=== PATIENT | male | born 1945 | race Caucasian/White ===

== ENCOUNTER 2017-07-15 07:29 | Inpatient (IN) ==
--- NOTE | 2017-07-15 07:47 | Emergency Department Note ---
Disposition Clinical Impression: Neurological symptoms, Visual field defect, Community acquired pneumonia, Elevated troponin level Disposition: Admitted As Inpatient Condition: Fair General Adult HPI - General Stated complaint: Neuro symptoms Time Seen by Provider: 07/15/17 07:33 Source: patient Limitations: no limitations - History of Present Illness Pain Scale: 1 - Related Data Home Medications Medication Instructions Recorded Confirmed Aspirin [Adult Low Dose Aspirin EC] 81 mg PO DAILY 11/20/14 07/15/17 Atorvastatin [Lipitor] 40 mg PO HS 11/20/14 07/15/17 Losartan/Hydrochlorothiazide 1 tab PO DAILY 11/20/14 07/15/17 [Hyzaar 100-25 Tablet] HYDROcodone/Acet 5/325 mg [[place] 1 tab PO BID PRN 07/15/17 07/15/17 5-325 mg] Allergies Allergy/AdvReac Type Severity Reaction Status Date / Time No Known Allergies Allergy Verified 07/15/17 09:11 Past Medical History - Past Medical History Medical history: Reports: arthritis, hyperlipidemia, hypertension Surgical history: Reports: cholecystectomy Psychiatric history: Reports: no psych history - Social History Smoking Status: Former smoker Smokeless Tobacco Status: No Alcohol use: Reports: none Drug use: Reports: none Physical Exam - General Limitations: no limitations General appearance: alert, in no apparent distress Course Vital Signs Temperature 99.1 F 07/15/17 07:37 Pulse Rate 84 07/15/17 07:37 Respiratory Rate 15 07/15/17 07:37 Blood Pressure 113/88 07/15/17 07:37 O2 Sat by Pulse Oximetry 91 07/15/17 07:37 Temperature 99.4 F 07/15/17 15:00 Pulse Rate 87 07/15/17 15:00 Respiratory Rate 15 07/15/17 15:00 Blood Pressure 133/57 07/15/17 15:00 O2 Sat by Pulse Oximetry 92 07/15/17 15:00 Oxygen Delivery Oxygen Delivery Nasal Cannula Medical Decision Making - Lab Data Result diagrams: 07/15/17 08:03 07/15/17 08:03 Lab Results 07/15/17 07/15/17 07/15/17 Range/Units 07:36 08:03 08:03 WBC 10.8 (4.3-11.1) K/mcL RBC 4.19 (4.19-5.50) M/mcL Hgb 12.0 L (12.9-16.9) g/dL Hct 36.6 L (37.5-50.1) % MCV 87.4 (83.0-100.0) fL MCH 28.6 (28.0-33.3) pg MCHC 32.8 (31.6-35.5) g/dL RDW 12.8 (11.5-14.5) % Plt Count 305 (140-400) K/mcL MPV 10.2 (9.4-12.4) fL Immature Gran % 0.7 (0-4) % Seg Neutrophils % 71.1 % Lymphocytes % 12.3 % Monocytes % 12.9 % Eosinophils % 2.6 % Basophils % 0.4 % Neutrophils # 7.7 (1.6-8.9) K/mcL Lymphocytes # 1.3 (0.6-4.6) K/mcL Monocytes # 1.4 H (0.0-1.3) K/mcL Eosinophils # 0.3 (0.0-0.6) K/mcL Basophils # 0.0 (0.0-0.2) K/mcL Immature Plt Fraction 3.7 (1.1-6.1) % PT 13.4 H (9.4-12.1) Seconds INR 1.2 APTT 27.3 (26.0-36.0) Seconds Sodium (136-145) mEq/L Potassium (3.5-5.1) mEq/L Chloride (98-107) mEq/L Carbon Dioxide (23-29) mEq/L BUN (8-23) mg/dL Creatinine (0.70-1.30) mg/dL Est GFR ( Amer) (> 60) Est GFR (Non-Af Amer) (> 60) BUN/Creatinine Ratio (6-26) Glucose (70-105) mg/dL POC Glucose 107 H (70-99) mg/dL Calculated Osmolality (280-300) Calcium (8.6-10.3) mg/dL Troponin I (< 0.04) ng/mL 07/15/17 Range/Units 08:03 WBC (4.3-11.1) K/mcL RBC (4.19-5.50) M/mcL Hgb (12.9-16.9) g/dL Hct (37.5-50.1) % MCV (83.0-100.0) fL MCH (28.0-33.3) pg MCHC (31.6-35.5) g/dL RDW (11.5-14.5) % Plt Count (140-400) K/mcL MPV (9.4-12.4) fL Immature Gran % (0-4) % Seg Neutrophils % % Lymphocytes % % Monocytes % % Eosinophils % % Basophils % % Neutrophils # (1.6-8.9) K/mcL Lymphocytes # (0.6-4.6) K/mcL Monocytes # (0.0-1.3) K/mcL Eosinophils # (0.0-0.6) K/mcL Basophils # (0.0-0.2) K/mcL Immature Plt Fraction (1.1-6.1) % PT (9.4-12.1) Seconds INR APTT (26.0-36.0) Seconds Sodium 142 (136-145) mEq/L Potassium 3.0 L (3.5-5.1) mEq/L Chloride 100 (98-107) mEq/L Carbon Dioxide 31 H (23-29) mEq/L BUN 32 H (8-23) mg/dL Creatinine 1.66 H (0.70-1.30) mg/dL Est GFR ( Amer) 50 L (> 60) Est GFR (Non-Af Amer) 41 L (> 60) BUN/Creatinine Ratio 19 (6-26) Glucose 108 H (70-105) mg/dL POC Glucose (70-99) mg/dL Calculated Osmolality 301 H (280-300) Calcium 9.3 (8.6-10.3) mg/dL Troponin I 0.08 H* (< 0.04) ng/mL Attestation Statement - Attestation Attestation: For this encounter, I have reviewed the CUTTING MACHINE TENDER DECORATIVE or PA documentation, treatment plan, and medical decision making; and I have had face to face time with this patient. [id number] time provided Patient arrives with neuro symptoms. Last known well was 9 hours prior to arrival. He appears in no acute distress on exam. Plan of care and management discussed by me with the physician dam tender assistant. Stroke alert not activated due to the length of time since onset of symptoms
--- NOTE | 2017-07-15 07:47 | Emergency Department Note ---
Disposition Clinical Impression: Neurological symptoms, Visual field defect, Elevated troponin level Community acquired pneumonia Qualifiers: Laterality: right Lung location: unspecified part of lung Qualified Code(s): J18.9 - Pneumonia, unspecified organism Disposition: Admitted As Inpatient Condition: Fair Time of Disposition: 09:03 Neuro HPI - General Stated Complaint: Neuro symptoms Time Seen by Provider: 07/15/17 07:33 Source: patient, family Mode of arrival: wheelchair Limitations: no limitations Nursing Notes Reviewed: Yes Vital Signs Reviewed: Yes - History of Present Illness HPI Narrative: Alert and oriented nontoxic-appearing 71-year-old male presents for evaluation of visual disturbances and worsening ataxia. The ataxia has been worsening over the course of the past 3 weeks according to both the patient and the spouse. The patient states that he went to bed at approximately 10:30 PM last night and felt at baseline. He awoke at 0300 hours this morning to use the restroom and stated "it was like I was looking down a tunnel". He complains of her vision went both eyes open. He states that when he closes either eye, his vision is corrected. He also complains of a mild headache. He denies any chest pain, shortness of breath, worsening cough, fever, chills, numbness/ tingling/weakness of the extremities. His speech is appropriate according to his spouse. He denies any falls with head injury recently, however, his states that he has had multiple falls at home over the course of the past 3 weeks, which has necessitated the use of a cane with ambulation. Of note, the patient is scheduled for a follow-up appointment at [facility] for bone cancer with presumed metastasis. His follow-up appointment is scheduled for July 24. Onset of Symptoms Date: 07/15/17 Onset of Symptoms Time: 03:30 Timing confirmed by: spouse Location: ataxia, other (visual problems) Severity: moderate Improves with: none Worsens with: none Context: present upon awakening On Anticoagulants: No Associated symptoms: Reports: headaches (mild). Denies: confusion, chest pain, cough, fever/chills, nausea/vomiting, shortness of breath Treatments Prior to Arrival: none - Related Data Home Medications: Home Medications Medication Instructions Recorded Confirmed Aspirin [Adult Low Dose Aspirin EC] 81 mg PO DAILY 11/20/14 07/15/17 Atorvastatin [Lipitor] 40 mg PO HS 11/20/14 07/15/17 Losartan/Hydrochlorothiazide 1 tab PO DAILY 11/20/14 07/15/17 [Hyzaar 100-25 Tablet] HYDROcodone/Acet 5/325 mg [[place] 1 tab PO BID PRN 07/15/17 07/15/17 5-325 mg] Allergies/Adverse Reactions: Allergies Allergy/AdvReac Type Severity Reaction Status Date / Time No Known Allergies Allergy Verified 07/15/17 09:11 All systems ED: reviewed and negative except as stated. Constitutional: Denies: fever, chills, weakness, weight change Eyes: Reports: as per HPI, vision change (Blurred vision with both eyes open). Denies: eye pain, eye discharge ENT ED: Denies: ear pain, throat pain, dental pain, hearing loss, epistaxis, congestion, dysphagia Cardiovascular: Denies: chest pain, palpitations, dyspnea on exertion, edema, syncope Respiratory: Denies: cough, dyspnea, wheezes, hemoptysis, stridor Gastrointestinal: Denies: abdominal pain, nausea, vomiting, diarrhea, constipation, hematemesis, melena, hematochezia Genitourinary: Denies: urgency, dysuria, frequency, hematuria Musculoskeletal: Denies: back pain, neck pain, arthralgia, myalgia Integumentary: Denies: rash, abrasion, lesions Neurological: Reports: as per HPI, headache. Denies: weakness, numbness, paresthesias, confusion, abnormal gait, vertigo Psychiatric: Denies: anxiety, depression, suicidal thoughts, homicidal thoughts , auditory hallucinations, visual hallucinations Endocrine: Denies: fatigue Hematological/Lymphatic: Denies: easy bleeding, easy bruising Allergic/Immunologic: Denies: facial swelling, urticaria Past Medical History - Past Medical History Attestation: Yes The following information was validated with the patient. Source: patient, obtained from family, nursing notes reviewed Medical history: Reports: arthritis, hyperlipidemia, hypertension Surgical history: Reports: cholecystectomy Psychiatric history: Reports: no psych history - Social History Smoking Status: Former smoker Smokeless Tobacco Status: No Alcohol use: Reports: none Drug use: Reports: none Physical Exam - General Limitations: no limitations General appearance: alert, in no apparent distress - Head Head exam: atraumatic, normocephalic, normal inspection - Eye Eye exam: Present: PERRL, EOMI, other (Mild lateral deviation (exotropia) of the right eye without appreciable nystagmus. The patient's spouse states this is a new finding.). Absent: nystagmus - Expanded Eye Exam Pupils: Bilateral: regular, round, reactive, size (4) - ENT ENT exam: mucous membranes moist - Neck Neck exam: Present: normal inspection, full ROM, trachea midline - Chest Chest inspection: Present: normal inspection, symmetric chest wall rise - Respiratory Respiratory exam: Present: normal lung sounds bilaterally. Absent: respiratory distress, wheezes, stridor, accessory muscle use, prolonged expiratory phase - Cardiovascular Cardiovascular exam: Present: regular rate, normal rhythm, normal heart sounds - Abdominal Exam Abdominal exam: Present: soft, Non-Tender, normal bowel sounds - Extremities Exam Extremities exam: Present: normal inspection, full ROM. Absent: tenderness, pedal edema - Neurological Exam Neurological exam: Present: alert, oriented X3. Absent: normal gait (Unsteady gait) - Expanded Neurological Exam Patient oriented to: Present: person, place, time Speech: Present: fluid speech Cranial nerves: EOM function (II, III, IV, ): Normal, facial sensation (V): Normal, facial palsy (VII): Normal, spinal accessory function (XI): Normal, tongue deviation (XII): Normal Motor strength - LUE: 5/5 Motor strength - RUE: 5/5 Motor strength - LLE: 5/5 Motor strength - RLE: 5/5 Sensory exam upper extremity: light touch: Normal Sensory exam lower extremity: light touch: Normal Coma Scale Eye Opening: Spontaneous Coma Scale Motor Response: Obeys Commands Coma Scale Verbal Response: Oriented Coma Scale Total: 15 - Psychiatric Psychiatric exam: Present: normal affect, normal mood - Skin Skin exam: Present: warm, dry, intact, normal color. Absent: rash Course Course Narrative: At the time of the patient's arrival, he is now 9 hours from his last known well of 10:30 PM yesterday evening. As such, he is out side of the TPA window area a Laura will not be called at this time, however he will receive a full neuro workup. Dr. Esquivel has had a [id number] evaluation with the patient and agrees with this plan. 0810: I was contacted by Dr. Pimentel from [facility]. Dr. Pimentel states that there is patchy multifocal small vessel changes without evidence for an acute infarct. Dr. Pimentel recommends further evaluation with an MRI. The patient will be admitted to the hospitalist service, or further evaluation can be completed. 09: I spoke with Dr. Montaño of the hospitalist service who has agreed to accept the patient for admission for further observation, evaluation, and treatment. Vital Signs Temperature 99.1 F 07/15/17 07:37 Pulse Rate 84 07/15/17 07:37 Respiratory Rate 15 07/15/17 07:37 Blood Pressure 113/88 07/15/17 07:37 O2 Sat by Pulse Oximetry 91 07/15/17 07:37 Temperature 99.1 F 07/15/17 08:09 Pulse Rate 72 07/15/17 09:33 Respiratory Rate 15 07/15/17 09:33 Blood Pressure 129/77 07/15/17 09:33 O2 Sat by Pulse Oximetry 95 07/15/17 09:33 Oxygen Delivery Oxygen Delivery Nasal Cannula Neuro Symptoms/Deficit - Medical Records Medical records reviewed: Yes I reviewed the patient's medical records. - Lab Data Lab results reviewed: Yes I reviewed the patient's lab results. Lab results narrative: Laboratory Last Values WBC 10.8 K/mcL (4.3-11.1) 07/15/17 08:03 RBC 4.19 M/mcL (4.19-5.50) 07/15/17 08:03 Hgb 12.0 g/dL (12.9-16.9) L 07/15/17 08:03 Hct 36.6 % (37.5-50.1) L 07/15/17 08:03 MCV 87.4 fL (83.0-100.0) 07/15/17 08:03 MCH 28.6 pg (28.0-33.3) 07/15/17 08:03 MCHC 32.8 g/dL (31.6-35.5) 07/15/17 08:03 RDW 12.8 % (11.5-14.5) 07/15/17 08:03 Plt Count 305 K/mcL (140-400) 07/15/17 08:03 MPV 10.2 fL (9.4-12.4) 07/15/17 08:03 Immature Gran % 0.7 % (0-4) 07/15/17 08:03 Seg Neutrophils % 71.1 % 07/15/17 08:03 Lymphocytes % 12.3 % 07/15/17 08:03 Monocytes % 12.9 % 07/15/17 08:03 Eosinophils % 2.6 % 07/15/17 08:03 Basophils % 0.4 % 07/15/17 08:03 Neutrophils # 7.7 K/mcL (1.6-8.9) 07/15/17 08:03 Lymphocytes # 1.3 K/mcL (0.6-4.6) 07/15/17 08:03 Monocytes # 1.4 K/mcL (0.0-1.3) H 07/15/17 08:03 Eosinophils # 0.3 K/mcL (0.0-0.6) 07/15/17 08:03 Basophils # 0.0 K/mcL (0.0-0.2) 07/15/17 08:03 Immature Plt Fraction 3.7 % (1.1-6.1) 07/15/17 08:03 PT 13.4 Seconds (9.4-12.1) H 07/15/17 08:03 INR 1.2 07/15/17 08:03 APTT 27.3 Seconds (26.0-36.0) 07/15/17 08:03 Sodium 142 mEq/L (136-145) 07/15/17 08:03 Potassium 3.0 mEq/L (3.5-5.1) L 07/15/17 08:03 Chloride 100 mEq/L (98-107) 07/15/17 08:03 Carbon Dioxide 31 mEq/L (23-29) H 07/15/17 08:03 BUN 32 mg/dL (8-23) H 07/15/17 08:03 Creatinine 1.66 mg/dL (0.70-1.30) H 07/15/17 08:03 Est GFR ( Amer) 50 (> 60) L 07/15/17 08:03 Est GFR (Non-Af Amer) 41 (> 60) L 07/15/17 08:03 BUN/Creatinine Ratio 19 (6-26) 07/15/17 08:03 Glucose 108 mg/dL (70-105) H 07/15/17 08:03 Calculated Osmolality 301 (280-300) H 07/15/17 08:03 Calcium 9.3 mg/dL (8.6-10.3) 07/15/17 08:03 Troponin I 0.08 ng/mL (< 0.04) H* 07/15/17 08:03 Result diagrams: 07/15/17 08:03 07/15/17 08:03 Lab Results 07/15/17 07/15/17 07/15/17 Range/Units 08:03 08:03 08:03 WBC 10.8 (4.3-11.1) K/mcL RBC 4.19 (4.19-5.50) M/mcL Hgb 12.0 L (12.9-16.9) g/dL Hct 36.6 L (37.5-50.1) % MCV 87.4 (83.0-100.0) fL MCH 28.6 (28.0-33.3) pg MCHC 32.8 (31.6-35.5) g/dL RDW 12.8 (11.5-14.5) % Plt Count 305 (140-400) K/mcL MPV 10.2 (9.4-12.4) fL Immature Gran % 0.7 (0-4) % Seg Neutrophils % 71.1 % Lymphocytes % 12.3 % Monocytes % 12.9 % Eosinophils % 2.6 % Basophils % 0.4 % Neutrophils # 7.7 (1.6-8.9) K/mcL Lymphocytes # 1.3 (0.6-4.6) K/mcL Monocytes # 1.4 H (0.0-1.3) K/mcL Eosinophils # 0.3 (0.0-0.6) K/mcL Basophils # 0.0 (0.0-0.2) K/mcL Immature Plt Fraction 3.7 (1.1-6.1) % PT 13.4 H (9.4-12.1) Seconds INR 1.2 APTT 27.3 (26.0-36.0) Seconds Sodium 142 (136-145) mEq/L Potassium 3.0 L (3.5-5.1) mEq/L Chloride 100 (98-107) mEq/L Carbon Dioxide 31 H (23-29) mEq/L BUN 32 H (8-23) mg/dL Creatinine 1.66 H (0.70-1.30) mg/dL Est GFR ( Amer) 50 L (> 60) Est GFR (Non-Af Amer) 41 L (> 60) BUN/Creatinine Ratio 19 (6-26) Glucose 108 H (70-105) mg/dL Calculated Osmolality 301 H (280-300) Calcium 9.3 (8.6-10.3) mg/dL Troponin I 0.08 H* (< 0.04) ng/mL - Radiology Data Radiology results reviewed: Yes I reviewed the patient's radiology results. Head CT 07/15/17 07:42 IMPRESSION: Scattered areas of periventricular and subcortical white matter low density are noted bilaterally, as described above. These findings are nonspecific however are most likely due to multifocal small-vessel ischemic change. However, given the background of subcortical white matter low density,, subtle recent ischemia would be difficult to exclude. If clinical symptoms continue, consider MRI. No hemorrhage Critical results were called by Dr. Tonny Pimentel to Pilo Chen on 07/15/2017 at 08:13. D/ / Tonny Pimentel / Tonny Pimentel Interpreting Provider: Tonny Pimentel Chest X-Ray 07/15/17 08:07 IMPRESSION: Mild pulmonary vascular congestion. Moderate right perihilar opacity probably related to the vascular congestion however focal pneumonia or even tumor could be present. RECOMMENDATION: Follow-up films to document complete clearing of the perihilar opacity are necessary. D/ / Ibrahima Mckee MD / Ibrahima Mckee MD Interpreting Provider: Ibrahima Mckee MD - EKG Data EKG attestation: Yes I reviewed and interpreted this EKG. EKG results narrative: EKG reviewed by Dr. Esquivel as well. EKG shows a incomplete right bundle branch block at a rate of 80 bpm. DC interval 160, QRS duration 111, QT/QTc interval 391/47. No ectopy noted. No ST elevation. NIH Stroke Scale - Level of Consciousness LOC: Alert - LOC Questions LOC Questions: Answers both correctly - LOC Commands LOC Commands: Performs both correctly - Best Gaze Best Gaze: Normal - Visual Visual: No visual loss - Facial Palsy Facial Palsy: Normal - Motor Arms Motor Arm-Left: No drift for 10 seconds Motor Arm-Right: No drift for 10 seconds - Motor Legs Motor Leg-Left: No drift for 5 seconds Motor Leg-Right: No drift for 5 seconds - Limb Ataxia Limb Ataxia: Normal, No Ataxia - Sensory Sensory: Normal - Best Language Best Language: No aphasia - Dysarthria Dysarthria: Normal - Extinction and Inattention Extinction and Inattention: Normal - NIHSS Total Score NIHSS Total Score: 0 TPA Checklist - LKW: 3-4.5 hrs Add. Warnings/Precautions Patient/family understanding: The patient/family members have been counseled and understood the risk, benefit , and alternatives of treatment.
[2017-07-15 08:15] LABS: Basophils % 0.4 %; Eosinophils # 0.3 K/mcL (0.0-0.6); Eosinophils % 2.6 %; Hematocrit 36.6 % (37.5-50.1); Immature Granulocytes % 0.7 % (0-4); Immature Platelets 3.7 % (1.1-6.1); Lymphocytes # 1.3 K/mcL (0.6-4.6); Lymphocytes % 12.3 %; Mean Corpuscular HGB Conc 32.8 g/dL (31.6-35.5); Mean Corpuscular Hemoglobin 28.6 pg (28.0-33.3); Mean Corpuscular Volume 87.4 fL (83.0-100.0); Mean Platelet Volume 10.2 fL (9.4-12.4); Monocytes # 1.4 K/mcL (0.0-1.3); Monocytes % 12.9 %; Neutrophils # 7.7 K/mcL (1.6-8.9); Platelet Count 305 K/mcL (140-400); Red Blood Count 4.19 M/mcL (4.19-5.50); Red Cell Distribution Width 12.8 % (11.5-14.5); Segmented Neutrophils % 71.1 %
[2017-07-15 08:35] LABS: Calcium 9.3 mg/dL (8.6-10.3)
[2017-07-15 08:39] LABS: Troponin I 0.08 ng/mL (< 0.04)
[2017-07-15 08:45] LABS: INR 1.2; Prothrombin Time 13.4 Seconds (9.4-12.1)
[2017-07-15 08:48] LABS: Activated Partial Thrombo Time 27.3 Seconds (26.0-36.0)
[2017-07-15] MEDS ORDERED: Aspirin 81 MG TAB.CHEW PO ONE (09:00)
[2017-07-15] MEDS ORDERED: Acetaminophen 650 MG RECTAL SUPP RC PRN (09:00)
[2017-07-15] MEDS ORDERED: Azithromycin 500 MG in D5% in Water 250 ML IVPB ONE (09:00)
[2017-07-15] MEDS ORDERED: cefTRIAXone 1,000 MG in Water for inj. (sterile) 20 ML 10 ML IVP ONE (09:05)
--- NOTE | 2017-07-15 09:27 | Internal Med History&Physical ---
Date of Encounter: 07/15/17 Time of Encounter: 09:19 Internal Medicine - H&P: HPI Chief complaint: double vision Admitted From: Home Plans for Post Hospital Care: Home History of present illness: Mr. Park is a 71 year old male who has history of hypertension hyperlipidemia possible metastatic cancer presenting emergency room for double vision. Patient went to sleep at 10 PM in normal condition, woke up at 3 AM with double vision. He denies any weakness, but he does have mild headache and right eye pressure. From examining her right eye is deviated to the right side. Patient denies fever or chills no productive cough. Patient has been seen by outpatient for weight loss and possible metastatic malignancy workup, he is scheduled to have bone biopsy on 07/24/2017 at [facility]. In the emergency room chest x-ray shows possible pneumonia. CT of head showed small vascular disease. And troponin was mildly elevated at 0.08, he denies chest pain no shortness of breath. Lab shows stages 3 kidney disease, creatinine has been stable. EKG showed a right bundle Block. Patient is going to be admitted for #1 double vision for stroke workup and the possible metastatic cancer. #2 pneumonia #3 elevated troponin Past Med Surg Social Fam HX - Past Medical History Medical history: arthritis, hyperlipidemia, hypertension Psychiatric history: no psych history - Past Surgical History Surgical History: cholecystectomy - Social History Smoking Status: Former smoker Smokeless Tobacco Status: No Alcohol use: none Drug use: none Internal Medicine - H&P: Meds Aspirin [Adult Low Dose Aspirin EC] 81 mg PO 11/20/14 [History] Atorvastatin [Lipitor] 40 mg PO HS 11/20/14 [History] Losartan/Hydrochlorothiazide [Hyzaar 100-25 Tablet] 1 each PO 11/20/14 [History] HYDROcodone/Acet 5/325 mg [[place] 5-325 mg] 1 tab PO BID PRN 07/15/17 [History] 3 Allergy/AdvReac Type Severity Reaction Status Date / Time No Known Allergies Allergy Verified 07/15/17 09:11 All Systems PM: A 10-system review of systems was performed and is negative for pertinent findings except as documented above in the HPI. - Constitutional Vitals: Temp Pulse Resp BP Pulse Ox 99.1 F 75 15 154/83 96 07/15/17 08:09 07/15/17 09:00 07/15/17 09:00 07/15/17 09:00 07/15/17 09:00 General appearance: Present: A&O X 3, pleasant, no acute distress Exam: CONSTITUTIONAL: Patient appears as an age appropriate male well developed, in no acute distress. EYES Clear sclerae, bilateral pupils are equal, reactive to light and accommodation. Extraocular movements are intact RESPIRATORY: No accessory muscle use, bilateral clear to auscultation, no wheezing, no crackles/rales. CARDIOVASCULAR: Regular heart rate, normal S1 and S2, no murmurs GASTROINTESTINAL: bowel sounds present, soft, no tenderness. No hepatosplenomegaly. No bilateral CVA tenderness MUSCULOSKELETAL: Joints in normal range of motion, no clubbing, no edema, no cyanosis. Bilateral peripheral pulses 2+ LYMPHATIC no lymphadenopathy in neck, groin and axilla bilaterally, no thyromegaly. NEUROLOGIC: CN II to XII are grossly intact, no focal neurological deficit. Deep tendon reflexes 2+ bilaterally. Normal light touch sensation to upper and lower extremity PSYCHIATRIC: Oriented x3, with good insight, mood is euthymic. No hallucinations or delusions. SKIN: Skin warm and dry, no rashes, no open wound. Internal Med - H&P Results - Labs CBC & Chem 7: 07/15/17 08:03 07/15/17 08:03 Labs: Short CBC 07/15/17 Range/Units 08:03 WBC 10.8 (4.3-11.1) K/mcL Hgb 12.0 L (12.9-16.9) g/dL Hct 36.6 L (37.5-50.1) % Plt Count 305 (140-400) K/mcL Neutrophils # 7.7 (1.6-8.9) K/mcL BMP 07/15/17 08:03 Sodium 142 Potassium 3.0 L Chloride 100 Carbon Dioxide 31 H BUN 32 H Creatinine 1.66 H Glucose 108 H Calcium 9.3 Cardiac Enzymes 07/15/17 Range/Units 08:03 Troponin I 0.08 H* (< 0.04) ng/mL - Impressions ITS Impressions Head CT 07/15/17 07:42 IMPRESSION: Scattered areas of periventricular and subcortical white matter low density are noted bilaterally, as described above. These findings are nonspecific however are most likely due to multifocal small-vessel ischemic change. However, given the background of subcortical white matter low density,, subtle recent ischemia would be difficult to exclude. If clinical symptoms continue, consider MRI. No hemorrhage Critical results were called by Dr. Tonny Pimentel to Pilo Chen on 07/15/2017 at 08:13. D/ / Tonny Pimentel / Tonny Pimentel Interpreting Provider: Tonny Pimentel Chest X-Ray 07/15/17 08:07 IMPRESSION: Mild pulmonary vascular congestion. Moderate right perihilar opacity probably related to the vascular congestion however focal pneumonia or even tumor could be present. RECOMMENDATION: Follow-up films to document complete clearing of the perihilar opacity are necessary. D/ / Ibrahima Mckee MD / Ibrahima Mckee MD Interpreting Provider: Ibrahima Mckee MD - Assessment and plan (1) Visual field defect Current Visit: Yes Status: Acute Assessment and plan: Patient developed double vision at 3 AM, last a well-known times 10 PM last night, and NIH score 0. We will do MRI carotid Doppler echocardiogram stroke workup consult Neurology (2) Elevated troponin Current Visit: Yes Status: Acute Assessment and plan: troponin elevation, denies chest pain, EKG shows right bundle block. We will follow up troponin, do echocardiogram consult a vice president of development continue ASA (3) Hypertension Current Visit: Yes Status: Chronic Assessment and plan: Continue home medications Qualifiers: Hypertension type: essential hypertension Qualified Code(s): I10 - Essential (primary) hypertension (4) Bone metastases Current Visit: Yes Status: Acute Assessment and plan: Patient has history of weight loss for 40 Lb over the last 2 months, loss of balance, PET scan shows spine and right iliac increased uptake. Patient is scheduled to have bone biopsy at [facility] on 07/24/2017. (5) CKD (chronic kidney disease), stage III Current Visit: Yes Status: Chronic Assessment and plan: CK D stages 3 has been stable, avoid nephrotoxins (6) Community acquired pneumonia Current Visit: Yes Status: Acute Assessment and plan: Chest x-ray is showed the pneumonia possible congestion, pending echocardiogram. Will give levofloxacin, check a CT scan due to concerning malignancy Qualifiers: Laterality: right Lung location: unspecified part of lung Qualified Code( s): J18.9 - Pneumonia, unspecified organism - Time Spent With Patient Total time spent is greater than 50% in coordination of care (as documented) at patient's floor/unit and/or counseling patient:
[2017-07-15] MEDS ORDERED: Naloxone 0.4 MG/ML INJ IVP PRN (09:45)
[2017-07-15] MEDS ORDERED: Levofloxacin 750 MG/150 ML 750 MG/150 ML BAG IVPB SCH (10:00)
--- NOTE | 2017-07-15 11:56 | Neurology - Consult Note ---
Date of Encounter: 07/15/17 Time of Encounter: 11:53 Assessment and Plan (1) CVA (cerebral vascular accident) Current Visit: Yes Status: Acute 71 year old man with PMH significant for HTN, DM, obesity who developed acute onset of binocular diplopia lasting few hours in duration as well as balance difficulty, with rapid resolution. MRI of brain showed presence of acute infarct involving the cerebellar nodule at the vermis which likely caused the double vision and balance difficulty. There is also probable punctate infarct at the right posterior frontal subcortical region which can not be excluded and if this were real lesion then sine the two acute DW signal changes are from two different vascular territory embolic stroke should be consider until proven otherwise. Therefore i would recommend full stroke work up. Due to likelihood of embolic stroke i would recommend LAINE, along with carotid artery duplex. Continue aspirin 81mg daily and i would add on Plavix 75mg daily for secondary CVA prevention. Continue statin therapy. DVT prophylaxis and PT for gait. Total time spent with this case was approximately 50 minutes. Qualifiers: CVA mechanism: embolism Precerebral and cerebral artery: unspecified precerebral artery Qualified Code(s): I63.10 - Cerebral infarction due to embolism of unspecified precerebral artery History of Present Illness Chief complaint: double vision HPI: Mr. Park is a 71 year old male with PMH significant for HTN, hyperlipidemia, obesity, SOA, DM, OA, recent weight loss who developed acute onset of seeing double vision, occurring yesterday morning. Patient is interviewed in the presence of his . Patient developed acute onset of seeing double vision last night at around 10:30pm and at the time he was also having difficulty with his balance. The double vision lasted few hours and gradually resolved. Initial CT of head was reported no acute intracranial abnormality. MRI of brain showed acute infarct at the cerebellar nodule which likely responsible for the patient's complaint of double vision. There is also questionable DW signal abnormality at the right posterior frontal lobe subcortical region, which is small and difficult to correlate with ADC map and may be artefactual but acute small infarct can not be excluded. Currently the patient is feeling better and apparently his symptoms have resolved. He is eating in bed comfortably and denies any visual disturbances. Patient has been taking aspirin for many years. Past Med Surg Social Fam HX - Past Medical History Medical history: arthritis, hyperlipidemia, hypertension Psychiatric history: no psych history - Past Surgical History Surgical History: cholecystectomy - Social History Smoking Status: Former smoker Smokeless Tobacco Status: No Alcohol use: none Drug use: none Medications and Allergies Aspirin [Adult Low Dose Aspirin EC] 81 mg PO DAILY 11/20/14 [History] Atorvastatin [Lipitor] 40 mg PO HS 11/20/14 [History] Losartan/Hydrochlorothiazide [Hyzaar 100-25 Tablet] 1 tab PO DAILY 11/20/14 [ History] HYDROcodone/Acet 5/325 mg [[place] 5-325 mg] 1 tab PO BID PRN 07/15/17 [History] 3 Allergy/AdvReac Type Severity Reaction Status Date / Time No Known Allergies Allergy Verified 07/15/17 09:11 All Systems: The remainder of the systems were reviewed and are negative Physical Examination - Vital Signs Vital Signs: Initial Vital Signs Temp Pulse Resp BP Pulse Ox 99.1 F 84 15 113/88 91 07/15/17 07:37 07/15/17 07:37 07/15/17 07:37 07/15/17 07:37 07/15/17 07:37 - Constitutional General appearance: comfortable - Neurologic Detailed motor examination: full strength in all major muscle groups Motor examination - right side: 5/5: deltoids, biceps, triceps, wrist flexion, wrist extension, systems program manager, hip flexors, tibialis Anterior, quadriceps, toe extension (EHL), plantarflexion Motor examination - left side: 5/5: deltoids, biceps, triceps, wrist flexion, wrist extension, hip flexors, systems program manager, quadriceps, tibialis Anterior, toe extension (EHL), plantarflexion Mental Status Examination: awake, alert, oriented to person, oriented to place, oriented to time, follows commands appropriately, answers questions appropriately, no agnosia, no aphasia, no aproxia Cranial nerve examination: PERRL, EOMI, visual dozier intact, corneal reflexes brisk symmetrically, sensory to face intact, mastication intact, no facial asymmetry is present, no dysarthria, hearing is intact symmetrically, soft palate elevates bilaterally upon phonation, gag reflex intact, flexes SCM and trapezius muscles symmetrically with full power, tongue protrudes midline, no atrophy or facial fasiculations present Cerebellar examination: no dysmetria, performs finger to nose and heel to viera symmetrically without ataxia, no gait ataxia (Gait not assessed), no difficulty with rapid alternating movements Results - Laboratory Findings CBC and BMP: 07/15/17 08:03 07/15/17 08:03 Abnormal lab findings: Abnormal lab results Hgb 12.0 g/dL (12.9-16.9) L 07/15/17 08:03 Hct 36.6 % (37.5-50.1) L 07/15/17 08:03 Monocytes # 1.4 K/mcL (0.0-1.3) H 07/15/17 08:03 PT 13.4 Seconds (9.4-12.1) H 07/15/17 08:03 Potassium 3.0 mEq/L (3.5-5.1) L 07/15/17 08:03 Carbon Dioxide 31 mEq/L (23-29) H 07/15/17 08:03 BUN 32 mg/dL (8-23) H 07/15/17 08:03 Creatinine 1.66 mg/dL (0.70-1.30) H 07/15/17 08:03 Est GFR ( Amer) 50 (> 60) L 07/15/17 08:03 Est GFR (Non-Af Amer) 41 (> 60) L 07/15/17 08:03 Glucose 108 mg/dL (70-105) H 07/15/17 08:03 Calculated Osmolality 301 (280-300) H 07/15/17 08:03 Troponin I 0.08 ng/mL (< 0.04) H* 07/15/17 08:03 - Diagnostic Findings Additional findings: CT/CT stroke alert head wo con IMPRESSION: Scattered areas of periventricular and subcortical white matter low density are noted bilaterally, as described above. These findings are nonspecific however are most likely due to multifocal small-vessel ischemic change. However, given the background of subcortical white matter low density,, subtle recent ischemia would be difficult to exclude. If clinical symptoms continue, consider MRI. No hemorrhage MR/MR head/brain wo con IMPRESSION: Acute infarct in the cerebellar nodulus. . This may very well correlate with the patient's double vision. Nystagmus can be seen in lesions in this area. Multifocal small-vessel ischemic changes are noted bilaterally. Punctate diffusion signal hyperintensity in the right posterior frontal subcortical region on image 25. This is too small to characterize and may be artifact. An additional punctate focus of recent ischemia would be difficult to exclude. Consult Discharge Plan - Plan Referrals: Pneg Cardenas, [Primary Care Provider] -
[2017-07-15 14:07] LABS: Bilirubin,Urine Negative (Negative); Blood,Urine Small (Negative); Clarity,Urine Clear (Clear); Color,Urine Yellow (Yellow); Glucose,Urine (UA) Normal (Normal); Ketones,Urine Negative (Negative); Leukocyte Esterase,Urine Negative (Negative); Nitrite,Urine Negative (Negative); Protein,Urine 30 mg/dL (Neg-Trace); Specific Gravity,Urine 1.025 (1.010-1.025); Urobilinogen,Urine Normal (Normal)
[2017-07-15] MEDS: 0.9 % Sodium Chloride 1,000 ML IVC SCH (14:11)
[2017-07-15 14:21] LABS: Bacteria,Urine Few per hpf (None-Few); RBC,Urine 0-3 per hpf (0-3); WBC,Urine 0-3 per hpf (0-3)
[2017-07-15] MEDS: *HR* Heparin 5,000 UNIT/ML VIAL SQ SCH ×2 (17:31→20:51)
[2017-07-15] MEDS: Acetaminophen 325 MG TABLET PO PRN ×2 (17:32→21:08)
--- NOTE | 2017-07-15 23:08 | Event Note ---
Date of Encounter: 07/15/17 Time of Encounter: 22:16 Alerted by pts. nurse ECHO Cha that pts. troponin level was now 0.23 which was trending up from 0.08, 0.12, and 0.17. Pt. denies CP. Pt. admitted for binocular diplopia and MRI of the head/brain today showed acute infarct in the cerebellar nodulus which may correlate with the patient's double vision. Placed Deidre can be seen in lesions in this area. Multifocal small vessel ischemic changes are noted bilaterally. Punctate diffusion signal hyperintensity in the right posterior frontal subcortical region on image 25 this is too small to characterize and may be artifact. An additional punctate focus of recent ischemia would be difficult to exclude. Suspicion for possible brain metastasis in differential as well. Neurology recommendations include full stroke workup along with LAINE due to likelihood of embolic stroke, bilateral carotid duplex, continuation of 81 mg aspirin therapy daily, and add Plavix 75 mg daily for secondary CVA prevention. Continue statin therapy, DVT prophylaxis, and PT for gait. Discussed new troponin findings with Dr. Ba to assess for safety of heparin drip if needed. Dr. Ba's recommendation is to discontinue Plavix if heparin drip needed. Also consulted cardiology and discussed case with Dr. Keke Mejia in light of new troponin level. Her recommendation to continue Plavix and current recommendations from Neurology since neurologic concerns present on admission and increasing troponins may be d /t CVA. However, discontinue Plavix and begin heparin drip if pt. begins to show signs of atrial fibrillation on telemetry. I appreciate both consults and recommendations.
[2017-07-16] MEDS: Acetaminophen 325 MG TABLET PO PRN ×3 (02:43→19:41)
[2017-07-16 05:41] LABS: Basophils % 0.4 %; Eosinophils # 0.4 K/mcL (0.0-0.6); Eosinophils % 3.8 %; Hematocrit 30.8 % (37.5-50.1); Immature Granulocytes % 0.8 % (0-4); Lymphocytes # 1.7 K/mcL (0.6-4.6); Lymphocytes % 16.4 %; Mean Corpuscular HGB Conc 32.5 g/dL (31.6-35.5); Mean Corpuscular Hemoglobin 28.6 pg (28.0-33.3); Mean Platelet Volume 10.6 fL (9.4-12.4); Monocytes # 1.5 K/mcL (0.0-1.3); Monocytes % 14.5 %; Neutrophils # 6.7 K/mcL (1.6-8.9); Platelet Count 268 K/mcL (140-400); Red Cell Distribution Width 12.9 % (11.5-14.5); Segmented Neutrophils % 64.1 %
[2017-07-16] MEDS: *HR* Heparin 5,000 UNIT/ML VIAL SQ SCH ×2 (05:45→13:56)
[2017-07-16 05:46] LABS: INR 1.4; Prothrombin Time 15.4 Seconds (9.4-12.1)
[2017-07-16 05:56] LABS: Calcium 8.5 mg/dL (8.6-10.3); Potassium 2.8 mEq/L (3.5-5.1)
[2017-07-16 05:57] LABS: Chol/HDL Ratio 2.9 (0-4.9); Magnesium 2.1 mg/dL (1.6-2.6); Phosphorous 3.3 mg/dL (2.7-4.5)
--- NOTE | 2017-07-16 08:55 | Neurology Progress Note ---
Date of Encounter: 07/16/17 Objective - Constitutional Vitals: Temp Pulse Resp BP Pulse Ox 98.5 F 86 16 133/68 94 07/16/17 08:32 07/16/17 08:32 07/16/17 08:32 07/16/17 08:32 07/16/17 08:32 - Neurological Exam Motor Examination: Present: full strength in all major muscle groups Motor examination - left side: 07/21: deltoids, biceps, triceps, wrist flexion, wrist extension, hip flexors, director of property management, quadriceps, tibialis Anterior, toe extension (EHL), plantarflexion Mental Status Examination: Present: awake, alert, oriented to person, oriented to place, oriented to time, follows commands appropriately, answers questions appropriately, no agnosia, no aphasia, no aproxia Cranial nerve examination: Present: PERRL, EOMI, visual dozier intact, corneal reflexes brisk symmetrically, sensory to face intact, mastication intact, no facial asymmetry is present, no dysarthria, hearing is intact symmetrically, soft palate elevates bilaterally upon phonation, gag reflex intact, flexes SCM and trapezius muscles symmetrically with full power, tongue protrudes midline, no atrophy or facial fasiculations present Cerebellar examination: Present: no dysmetria, performs finger to nose and heel to viera symmetrically without ataxia, no gait ataxia (Gait not assessed), no difficulty with rapid alternating movements Results - Laboratory Findings CBC and BMP: 07/16/17 04:59 07/16/17 04:59 Abnormal lab findings: Abnormal lab results RBC 3.50 M/mcL (4.19-5.50) L 07/16/17 04:59 Hgb 10.0 g/dL (12.9-16.9) L D 07/16/17 04:59 Hct 30.8 % (37.5-50.1) L 07/16/17 04:59 Monocytes # 1.5 K/mcL (0.0-1.3) H 07/16/17 04:59 PT 15.4 Seconds (9.4-12.1) H 07/16/17 04:59 Potassium 2.8 mEq/L (3.5-5.1) L 07/16/17 04:59 Carbon Dioxide 32 mEq/L (23-29) H 04/30/18 04:59 BUN 28 mg/dL (8-23) H 07/16/17 04:59 Creatinine 1.48 mg/dL (0.70-1.30) H 07/16/17 04:59 Est GFR ( Amer) 57 (> 60) L 07/16/17 04:59 Est GFR (Non-Af Amer) 47 (> 60) L 07/16/17 04:59 POC Glucose 107 mg/dL (70-99) H 07/15/17 07:36 Calcium 8.5 mg/dL (8.6-10.3) L 07/16/17 04:59 Troponin I 0.23 ng/mL (< 0.04) H* 07/15/17 21:33 Urine Protein 30 mg/dL (Neg-Trace) H 07/15/17 13:45 Urine Blood Small (Negative) H 07/15/17 13:45 Consult Discharge Plan - Plan Referrals: Peng Cardenas DO [Primary Care Provider] -
[2017-07-16] MEDS: Aspirin 81 MG TAB.CHEW PO SCH (09:17)
--- NOTE | 2017-07-16 10:02 | Cardiology Consult Note ---
Date of Encounter: 07/16/17 Time of Encounter: 10:00 Assessment and Plan (1) Elevated troponin Current Visit: Yes Status: Acute Troponins 0.08, 0.12, 0.17, 0.23 in setting of CVA and CKD. Also in setting of possible metastatic cancer--lung and bone masses. Suspect demand ischemia, nondiagnostic for ACS. Reports occasional left sided sharp chest pain with no alleviating or exacerbating factors. Standard stress test 2016 negative for ischemia. TTE LVEF 60-65%. Mild cLVH. Mild LVDD, normal RV structure and function. Mild KS , mild TR, mild phtn. There is a PFO by agitated saline contrast. No ischemic EKG changes. No inpt ischemic evaluation is warranted at this time in setting of CVA. (2) CVA (cerebral vascular accident) Current Visit: Yes Status: Acute Presented with binocular diplopia lasting few hours in duration as well as balance difficulty, with rapid resolution. MRI of brain showed presence of acute infarct involving the cerebellar nodule at the vermis. Neurology is following, due to likelihood of embolic stroke neuro recommends LAINE , carotid artery duplex. Surface echo EF preserved, PFO noted. LAINE has already been ordered. Pt ate this AM, plan for tomorrow. Continue ASA, Plavix and Statin started by neuro. No arrhythmias noted on telemetry. Holter in 2016 brief episode of atrial tach, but no A-Fib or Flutter was noted. Qualifiers: CVA mechanism: embolism Precerebral and cerebral artery: unspecified precerebral artery Qualified Code(s): I63.10 - Cerebral infarction due to embolism of unspecified precerebral artery (3) Hypokalemia Current Visit: Yes Status: Acute K 2.8 this AM--replaced. Discussion w patient/family: The assessment and plan as outlined above was discussed with the patient and/or family members who expressed understanding and agreement. All questions were answered. Thank you for involving us in the care of your patient. Please call with any questions. I will discuss all the above with Dr. Silver and make changes as necessary. History of Present Illness Consult date: 07/16/17 Consult reason: Elevated troponin Chief complaint: double vision History of present illness: Mr. Park is a 71 year old male with PMH of HTN, DM, obesity who developed acute onset of binocular diplopia lasting few hours in duration as well as balance difficulty, with rapid resolution. MRI of brain showed presence of acute infarct involving the cerebellar nodule at the vermis which likely caused the double vision and balance difficulty. Neurology is following, due to likelihood of embolic stroke neuro recommends LAINE, carotid artery duplex. Troponins 0.08, 0.12, 0.17, 0.23. Cardiology consulted for further recommendations. Of note, pt has possible metastatic cancer. He has a bone lesion with plans for biopsy at [facility] on 07/24, and on chest CT this admission, lung mass is noted. Pt reports occasional left sided chest pain over the past year described as sharp, no exacerbating or alleviating factors. No known hx of CAD. Standard stress test in 2016 was negative for ischemia. Echo completed--LVEF 60-65%. Mild cLVH. Mild LVDD, normal RV structure and function. Mild KS, mild TR, mild phtn. There is a PFO by agitated saline contrast. K 2.8 this AM. Past Med Surg Social Fam HX - Past Medical History Medical history: arthritis, hyperlipidemia, hypertension Psychiatric history: no psych history - Past Surgical History Surgical History: cholecystectomy - Social History Smoking Status: Former smoker Smokeless Tobacco Status: No Alcohol use: none Drug use: none Medications and Allergies Aspirin [Adult Low Dose Aspirin EC] 81 mg PO DAILY 11/20/14 [History] Atorvastatin [Lipitor] 40 mg PO HS 11/20/14 [History] Losartan/Hydrochlorothiazide [Hyzaar 100-25 Tablet] 1 tab PO DAILY 11/20/14 [ History] HYDROcodone/Acet 5/325 mg [Sayre 5-325 mg] 1 tab PO BID PRN 07/15/17 [History] 3 Allergy/AdvReac Type Severity Reaction Status Date / Time No Known Allergies Allergy Verified 07/15/17 09:11 All Systems Review: The remainder of the systems were reviewed and are negative - Cardiovascular Cardiovascular: as per HPI, chest pain at rest, chest pain with exertion Physical Examination Vital Signs, Last 4 Hours Temp Pulse Resp BP Pulse Ox 07/16/17 08:32 98.5 F 86 16 133/68 94 Vital Signs Temp Pulse Resp BP Pulse Ox 07/16/17 08:32 98.5 F 86 16 133/68 94 07/16/17 04:00 98.4 F 78 16 116/72 94 07/16/17 00:40 98.5 F 79 18 107/59 95 07/15/17 18:00 98.9 F 88 18 115/77 89 07/15/17 15:00 99.4 F 87 15 133/57 92 07/15/17 11:27 98.7 F 84 15 112/74 95 07/15/17 11:26 98.7 F 84 15 112/74 95 07/15/17 10:28 75 15 128/68 95 Intake and Output 07/15/17 07/16/17 07/16/17 23:59 07:59 15:59 Intake Total 240 / 240 Output Total 300 / 300 525 / 525 300 / 300 Balance -60 / -60 -525 / -525 -300 / -300 Intake: Oral 240 / 240 Output: Urine 300 / 300 525 / 525 300 / 300 Other: Meal Dinner Percent of Meal Consumed 65% Weight 111.4 kg Patient Weight 07/16/17 23:59 Weight 111.4 kg Vital Signs Temp Pulse Resp BP Pulse Ox 07/16/17 08:32 98.5 F 86 16 133/68 94 07/16/17 04:00 98.4 F 78 16 116/72 94 07/16/17 00:40 98.5 F 79 18 107/59 95 07/15/17 18:00 98.9 F 88 18 115/77 89 07/15/17 15:00 99.4 F 87 15 133/57 92 07/15/17 11:27 98.7 F 84 15 112/74 95 07/15/17 11:26 98.7 F 84 15 112/74 95 07/15/17 10:28 75 15 128/68 95 Intake and Output 07/15/17 07/16/17 07/16/17 23:59 07:59 15:59 Intake Total 240 / 240 Output Total 300 / 300 525 / 525 300 / 300 Balance -60 / -60 -525 / -525 -300 / -300 Intake: Oral 240 / 240 Output: Urine 300 / 300 525 / 525 300 / 300 Other: Meal Dinner Percent of Meal Consumed 65% Weight 111.4 kg Patient Weight 07/16/17 23:59 Weight 111.4 kg General: Conversant, No Apparent Distress HEENT: Atraumatic, Normocephaly, Mucus Membranes Moist Neck: No JVD, Normal carotid pulses Cardiac: Reg Rate and Rhythm, Normal S1 and S2, No Murmur Lungs: Normal Breath Sounds, No Wheeze, Rales, Rhonchi Neuro: Alert and responsive, No focal deficits noted Abdomen: Soft, Non-Tender Skin: No rashes noted on visualized skin Musculoskeletal: No Chest Wall Tenderness Extremities: No Clubbing, No Cyanosis, No Edema, Normal Pulses Results 07/16/17 04:59 07/16/17 04:59 Lab Results 07/15/17 07/15/17 07/15/17 11:27 16:32 21:33 WBC Hgb Hct Plt Count INR Sodium Potassium Chloride Carbon Dioxide BUN Creatinine Glucose Calcium Magnesium Troponin I 0.12 H* 0.17 H* 0.23 H* 07/16/17 07/16/17 07/16/17 04:59 04:59 04:59 WBC 10.4 Hgb 10.0 L D Hct 30.8 L Plt Count 268 INR 1.4 Sodium 140 Potassium 2.8 L Chloride 101 Carbon Dioxide 32 H BUN 28 H Creatinine 1.48 H Glucose 104 Calcium 8.5 L Magnesium Troponin I 07/16/17 04:59 WBC Hgb Hct Plt Count INR Sodium Potassium Chloride Carbon Dioxide BUN Creatinine Glucose Calcium Magnesium 2.1 Troponin I Short CBC 07/16/17 Range/Units 04:59 WBC 10.4 (4.3-11.1) K/mcL Hgb 10.0 L D (12.9-16.9) g/dL Hct 30.8 L (37.5-50.1) % Plt Count 268 (140-400) K/mcL Neutrophils # 6.7 (1.6-8.9) K/mcL BMP 07/16/17 Range/Units 04:59 Sodium 140 (136-145) mEq/L Potassium 2.8 L (3.5-5.1) mEq/L Chloride 101 (98-107) mEq/L Carbon Dioxide 32 H (23-29) mEq/L BUN 28 H (8-23) mg/dL Creatinine 1.48 H (0.70-1.30) mg/dL Glucose 104 (70-105) mg/dL Calcium 8.5 L (8.6-10.3) mg/dL Cardiac Enzymes 07/15/17 07/15/17 07/15/17 Range/Units 21:33 16:32 11:27 Troponin I 0.23 H* 0.17 H* 0.12 H* (< 0.04) ng/mL Urine 07/15/17 Range/Units 13:45 Urine Color Yellow (Yellow) Urine Clarity Clear (Clear) Urine pH 6.0 (5.0-8.0) pH Units Ur Specific [place] 1.025 (1.010-1.025) Urine Protein 30 H (Neg-Trace) mg/dL Urine Glucose (UA) Normal (Normal) mg/dL Impressions Brain MRI 07/15/17 09:44 IMPRESSION: Acute infarct in the cerebellar nodulus. . This may very well correlate with the patient's double vision. Nystagmus can be seen in lesions in this area. Multifocal small-vessel ischemic changes are noted bilaterally. Punctate diffusion signal hyperintensity in the right posterior frontal subcortical region on image 25. This is too small to characterize and may be artifact. An additional punctate focus of recent ischemia would be difficult to exclude. D/ / Tonny Pimentel / Tonny Pimentel Interpreting Provider: Tonny Pimentel Chest CT 07/15/17 09:49 IMPRESSION: 1. There is a right hilar/perihilar process which is difficult to optimally assess due to the lack of IV contrast which makes it difficult to separate unenhanced hilar/perihilar vessels from other pathology. 2. Taking into consideration statement in impression 1 above, the findings are concerning for lung cancer with pneumonia considered less likely. There is probably a 4 cm (approximate) posterior perihilar upper lobe mass with probable confluent right hilar adenopathy. Of note there is also some peribronchial thickening and quite extensive interlobular septal thickening in the right upper lobe which if confirmed as cancer, would most likely represent lymphangitic spread. Trace small pleural effusion noted. 3. Mediastinal adenopathy with subcarinal and right paratracheal nodes. 4. Additional finding of focal 3 cm airspace density in the superior segment right lower lobe and an anterior subpleural 1.4 cm parenchymal nodular density in the left upper lobe. D/ / 07/15/2017 11:03:39 Krish Walker MD / pablito Interpreting Provider: Krish Walker MD Echocardiogram 07/16/17 09:48 Impressions: LVEF 60-65%. Mild concentric left ventricular hypertrophy. Mild left ventricular diastolic dysfunction. Normal right ventricular structure and function. Mild pulmonic regurgitation. Mild tricuspid regurgitation. Mild pulmonary hypertension. There is a PFO by agitated saline contrast, Left Ventricular Wall Motion: Rest Echo Findings All wall segments showed normal motion. Findings: Study Quality * Technically adequate exam. ECG Findings * Normal sinus rhythm. Left Ventricle * LVEF 60-65%. * Mild concentric left ventricular hypertrophy. * Mild left ventricular diastolic dysfunction. Right Ventricle * Normal right ventricular structure and function. Left Atrium * Normal left atrial size. Right Atrium * Normal right atrial size. Mitral Valve * Normal mitral valve structure. * No mitral stenosis. * No mitral regurgitation. Aortic Valve * No aortic regurgitation. * No aortic stenosis. * Trileaflet aortic valve. * Mildly calcified aortic valve leaflets. Tricuspid Valve * Tricuspid valve not well visualized. * Estimated RA pressure is 3 mmHg. * Estimated RVSP is 36 mmHg. * Mild pulmonary hypertension. * Mild tricuspid regurgitation. Pulmonic Valve * Pulmonic valve is not well visualized. * No pulmonic stenosis. * Mild pulmonic regurgitation. Pulmonary Artery * Pulmonary artery not well visualized. Aorta * Normally sized aortic root. Pericardium * There is no pericardial effusion present. Interatrial Septum * There is a PFO by agitated saline contrast, IVC * Normal IVC dimensions and inspiratory collapse. Active Medications Acetaminophen (Tylenol) 650 mg PO Q6HR PRN PRN Reason: Pain Stop: 01/14/18 17:08 Last Admin: 07/16/17 09:18 Dose: 650 mg Hydrocodone Bitart/Acetaminophen (Sayre 5-325 Mg) 1 tab PO BID PRN PRN Reason: Pain Stop: 01/14/18 09:42 Aspirin (Aspirin) 81 mg PO DAILY [facility]OMO Stop: 01/15/18 09:01 Last Admin: 07/16/17 09:17 Dose: 81 mg Atorvastatin Calcium (Lipitor) 40 mg PO HS MOMO Stop: 01/14/18 21:01 Last Admin: 07/15/17 20:51 Dose: 40 mg Clopidogrel Bisulfate (Plavix) 75 mg PO DAILY [facility]OMO Stop: 01/14/18 19:31 Last Admin: 07/16/17 09:17 Dose: 75 mg HCTZ/Losartan Potassium (Hyzaar 50/12.5) 2 each PO DAILY [facility] Stop: 01/15/18 09:01 Heparin Sodium (Porcine) (Heparin) 5,000 unit SQ Q8HCO [facility]O Stop: 01/14/18 16:46 Last Admin: 07/16/17 05:45 Dose: 5,000 unit Sodium Chloride (0.9 % Sodium Chloride) 1,000 mls @ 75 mls/hr IVC .[id number] [facility] Stop: 07/16/17 12:24 Last Admin: 07/15/17 14:11 Dose: 75 mls/hr Levofloxacin/Dextrose (Levaquin Premix 750mg/150 Ml) 750 mg in 150 mls @ 100 mls/hr IVPB Q48H [facility]O PRN Reason: Protocol Stop: 01/14/18 10:01 Last Admin: 07/15/17 14:12 Dose: 100 mls/hr Naloxone HCl (Narcan) 0.4 mg IVP Q2MIN PRN PRN Reason: SEE COMMENTS Stop: 01/14/18 09:46 Potassium Chloride (Potassium Chloride) 40 meq PO ONCE ONE Stop: 07/16/17 10:23 - Imaging and Cardiology Echo: report reviewed - EKG Interpretation EKG results cardiology: personally reviewed (SR), other (12 hr tele AVG HR 78, SR, no significant pauses or arrhythmias.) Consult Discharge Plan - Plan Referrals: Peng Cardenas DO [Primary Care Provider] -
--- NOTE | 2017-07-16 11:01 | Internal Med Progress Note ---
<Nakul Montaño - Last Filed: 07/16/17 11:40> Date of Encounter: 07/16/17 Time of Encounter: 11:00 - Assessment and plan (1) CVA (cerebral vascular accident) Current Visit: Yes Status: Acute Assessment and plan: Patient developed double vision at 3 AM on 07/14/17. MRI Brain shows acute infarct on cerebellar nodules at vermis. Likely cause of visual disturbances. Carotid duplex with 40-59% R ICA occlusion, 60-79% L ICA occlusion Echo pending No ischemic EKG changes Cardiology has seen patient and has no further acute cardiac recommendations. Neurology consulted and pending recommendations Qualifiers: CVA mechanism: embolism Precerebral and cerebral artery: unspecified precerebral artery Qualified Code(s): I63.10 - Cerebral infarction due to embolism of unspecified precerebral artery (2) Visual field defect Current Visit: Yes Status: Acute Assessment and plan: likely secondary to above (3) Elevated troponin Current Visit: Yes Status: Acute Assessment and plan: Troponins 0.08, 0.12, 0.17, 0.23 in setting of CVA and CKD. Also in setting of possible metastatic cancer--lung and bone masses. Suspect demand ischemia, nondiagnostic for ACS. Reports occasional left sided sharp chest pain with no alleviating or exacerbating factors. Standard stress test 2016 negative for ischemia. TTE LVEF 60-65%. Mild cLVH. Mild LVDD, normal RV structure and function. Mild MA , mild TR, mild phtn. There is a PFO by agitated saline contrast. No ischemic EKG changes. No inpatient ischemic evaluation is warranted at this time in setting of CVA. (4) Hypertension Current Visit: Yes Status: Chronic Assessment and plan: Blood pressure well controlled and stable. Qualifiers: Hypertension type: essential hypertension Qualified Code(s): I10 - Essential (primary) hypertension (5) Bone metastases Current Visit: Yes Status: Acute Assessment and plan: Patient has history of weight loss for 40 Lb over the last 2 months, loss of balance, PET scan shows spine and right iliac increased uptake. Patient is scheduled to have bone biopsy at [facility] on 07/24/2017. (6) CKD (chronic kidney disease), stage III Current Visit: Yes Status: Chronic Assessment and plan: CKD stages 3 has been stable, avoid nephrotoxins (7) Community acquired pneumonia Current Visit: Yes Status: Acute Assessment and plan: Patient is asymptomatic. CT chest suggest 4cm posterior perihilar right upper lobe mass concerning for lung cancer, less likely to be pneumonia. Consider discontinuing levofloxacin. Qualifiers: Laterality: right Lung location: unspecified part of lung Qualified Code( s): J18.9 - Pneumonia, unspecified organism (8) Hypokalemia Current Visit: Yes Status: Acute Assessment and plan: Potassium Chloride 20 meq PO once. Monitor with am labs - Time Spent With Patient Total time spent is greater than 50% in coordination of care (as documented) at patient's floor/unit and/or counseling patient: Greater than 35 minutes - Subjective Interval history: Patient's visual disturbances have improved. Confirms loss of 40lbs in the last 2 months with worsening weakness. He has appointment for bone biopsy at [facility] on 08/13/17. Denies CP, SOB, f/c/n/v. No recent illnesses. Appetite has been poor for the last 2 months. Continues to feel "pressure" behind his eyes. Completed Echo this am. No further acute complaints. - Constitutional Vitals: Temp Pulse Resp BP Pulse Ox 98.5 F 86 16 133/68 94 07/16/17 08:32 07/16/17 08:32 07/16/17 08:32 07/16/17 08:32 07/16/17 08:32 General appearance: Present: A&O X 3, pleasant, no acute distress - Head Head exam: Present: atraumatic, normocephalic - Eye Eye exam: Present: EOMI, conjuntiva pink, sclera anicteric - Neck Neck exam general surgery: Present: supple, trachea midline. Absent: lymphadenopathy - Respiratory Respiratory exam: Present: CTAB. Absent: accessory muscle use, rales, rhonchi, wheezes - Cardiovascular Cardiovascular exam: Present: RRR, +S1, +S2. Absent: diastolic murmur, gallop, rubs, systolic murmur - GI/Abdominal GI/Abdominal exam: Present: normal bowel sounds, soft, no peritoneal signs. Absent: distended, tenderness - Extremities Exam Extremities exam: Present: warm, radial pulses palpable and symmetrical. Absent : calf tenderness, cyanotic, pedal edema - Neurological Exam Neurological exam: Present: CN II-XII intact, oriented X3, no focal deficits, strengths equal and symetr throughout. Absent: pronater drift, facial droop, speech deficit - Skin Skin exam: Present: dry, intact Internal Medicine: Result - Labs CBC & Chem 7: 07/16/17 04:59 07/16/17 04:59 Labs: Short CBC 07/16/17 Range/Units 04:59 WBC 10.4 (4.3-11.1) K/mcL Hgb 10.0 L D (12.9-16.9) g/dL Hct 30.8 L (37.5-50.1) % Plt Count 268 (140-400) K/mcL Neutrophils # 6.7 (1.6-8.9) K/mcL BMP 07/16/17 04:59 Sodium 140 Potassium 2.8 L Chloride 101 Carbon Dioxide 32 H BUN 28 H Creatinine 1.48 H Glucose 104 Calcium 8.5 L Cardiac Enzymes 07/15/17 07/15/17 07/15/17 Range/Units 11:27 16:32 21:33 Troponin I 0.12 H* 0.17 H* 0.23 H* (< 0.04) ng/mL Urine 07/15/17 Range/Units 13:45 Urine Color Yellow (Yellow) Urine Clarity Clear (Clear) Urine pH 6.0 (5.0-8.0) pH Units Ur Specific [place] 1.025 (1.010-1.025) Urine Protein 30 H (Neg-Trace) mg/dL Urine Glucose (UA) Normal (Normal) mg/dL - ABG Interpretation ABG results: PT/INR, D-dimer PT 15.4 Seconds (9.4-12.1) H 07/16/17 04:59 - Impressions Impressions Brain MRI 07/15/17 09:44 IMPRESSION: Acute infarct in the cerebellar nodulus. . This may very well correlate with the patient's double vision. Nystagmus can be seen in lesions in this area. Multifocal small-vessel ischemic changes are noted bilaterally. Punctate diffusion signal hyperintensity in the right posterior frontal subcortical region on image 25. This is too small to characterize and may be artifact. An additional punctate focus of recent ischemia would be difficult to exclude. D/ / Tonny Pimentel / Tonny Pimentel Interpreting Provider: Tonny Pimentel Chest CT 07/15/17 09:49 IMPRESSION: 1. There is a right hilar/perihilar process which is difficult to optimally assess due to the lack of IV contrast which makes it difficult to separate unenhanced hilar/perihilar vessels from other pathology. 2. Taking into consideration statement in impression 1 above, the findings are concerning for lung cancer with pneumonia considered less likely. There is probably a 4 cm (approximate) posterior perihilar upper lobe mass with probable confluent right hilar adenopathy. Of note there is also some peribronchial thickening and quite extensive interlobular septal thickening in the right upper lobe which if confirmed as cancer, would most likely represent lymphangitic spread. Trace small pleural effusion noted. 3. Mediastinal adenopathy with subcarinal and right paratracheal nodes. 4. Additional finding of focal 3 cm airspace density in the superior segment right lower lobe and an anterior subpleural 1.4 cm parenchymal nodular density in the left upper lobe. D/ / 07/15/2017 11:03:39 Krish Walker MD / pablito Interpreting Provider: Krish Walker MD Echocardiogram 07/16/17 09:48 Impressions: LVEF 60-65%. Mild concentric left ventricular hypertrophy. Mild left ventricular diastolic dysfunction. Normal right ventricular structure and function. Mild pulmonic regurgitation. Mild tricuspid regurgitation. Mild pulmonary hypertension. There is a PFO by agitated saline contrast, Left Ventricular Wall Motion: Rest Echo Findings All wall segments showed normal motion. Findings: Study Quality * Technically adequate exam. ECG Findings * Normal sinus rhythm. Left Ventricle * LVEF 60-65%. * Mild concentric left ventricular hypertrophy. * Mild left ventricular diastolic dysfunction. Right Ventricle * Normal right ventricular structure and function. Left Atrium * Normal left atrial size. Right Atrium * Normal right atrial size. Mitral Valve * Normal mitral valve structure. * No mitral stenosis. * No mitral regurgitation. Aortic Valve * No aortic regurgitation. * No aortic stenosis. * Trileaflet aortic valve. * Mildly calcified aortic valve leaflets. Tricuspid Valve * Tricuspid valve not well visualized. * Estimated RA pressure is 3 mmHg. * Estimated RVSP is 36 mmHg. * Mild pulmonary hypertension. * Mild tricuspid regurgitation. Pulmonic Valve * Pulmonic valve is not well visualized. * No pulmonic stenosis. * Mild pulmonic regurgitation. Pulmonary Artery * Pulmonary artery not well visualized. Aorta * Normally sized aortic root. Pericardium * There is no pericardial effusion present. Interatrial Septum * There is a PFO by agitated saline contrast, IVC * Normal IVC dimensions and inspiratory collapse. Consult Discharge Plan - Plan Referrals: Peng Cardenas DO [Primary Care Provider] - <Srinivas Gomez - Last Filed: 07/16/17 13:40> Date of Encounter: 07/16/17 - Assessment and plan (1) Visual field defect Current Visit: Yes Status: Acute (2) Community acquired pneumonia Current Visit: Yes Status: Acute Qualifiers: Laterality: right Lung location: unspecified part of lung Qualified Code( s): J18.9 - Pneumonia, unspecified organism (3) Elevated troponin Current Visit: Yes Status: Acute (4) Hypertension Current Visit: Yes Status: Chronic Qualifiers: Hypertension type: essential hypertension Qualified Code(s): I10 - Essential (primary) hypertension (5) Bone metastases Current Visit: Yes Status: Acute (6) CKD (chronic kidney disease), stage III Current Visit: Yes Status: Chronic (7) CVA (cerebral vascular accident) Current Visit: Yes Status: Acute Qualifiers: CVA mechanism: embolism Precerebral and cerebral artery: unspecified precerebral artery Qualified Code(s): I63.10 - Cerebral infarction due to embolism of unspecified precerebral artery (8) Hypokalemia Current Visit: Yes Status: Acute - Time Spent With Patient Total time spent is greater than 50% in coordination of care (as documented) at patient's floor/unit and/or counseling patient: - Constitutional Vitals: Temp Pulse Resp BP Pulse Ox 98.7 F 81 16 141/82 95 07/16/17 11:50 07/16/17 11:50 07/16/17 11:50 07/16/17 11:50 07/16/17 11:50 Internal Medicine: Result - Labs CBC & Chem 7: 07/16/17 04:59 07/16/17 04:59 Labs: Short CBC 07/16/17 Range/Units 04:59 WBC 10.4 (4.3-11.1) K/mcL Hgb 10.0 L D (12.9-16.9) g/dL Hct 30.8 L (37.5-50.1) % Plt Count 268 (140-400) K/mcL Neutrophils # 6.7 (1.6-8.9) K/mcL BMP 07/16/17 04:59 Sodium 140 Potassium 2.8 L Chloride 101 Carbon Dioxide 32 H BUN 28 H Creatinine 1.48 H Glucose 104 Calcium 8.5 L Cardiac Enzymes 07/15/17 07/15/17 Range/Units 16:32 21:33 Troponin I 0.17 H* 0.23 H* (< 0.04) ng/mL Urine 07/15/17 Range/Units 13:45 Urine Color Yellow (Yellow) Urine Clarity Clear (Clear) Urine pH 6.0 (5.0-8.0) pH Units Ur Specific [place] 1.025 (1.010-1.025) Urine Protein 30 H (Neg-Trace) mg/dL Urine Glucose (UA) Normal (Normal) mg/dL - ABG Interpretation ABG results: PT/INR, D-dimer PT 15.4 Seconds (9.4-12.1) H 07/16/17 04:59 - Impressions Impressions Chest CT 07/15/17 09:49 IMPRESSION: 1. There is a right hilar/perihilar process which is difficult to optimally assess due to the lack of IV contrast which makes it difficult to separate unenhanced hilar/perihilar vessels from other pathology. 2. Taking into consideration statement in impression 1 above, the findings are concerning for lung cancer with pneumonia considered less likely. There is probably a 4 cm (approximate) posterior perihilar upper lobe mass with probable confluent right hilar adenopathy. Of note there is also some peribronchial thickening and quite extensive interlobular septal thickening in the right upper lobe which if confirmed as cancer, would most likely represent lymphangitic spread. Trace small pleural effusion noted. 3. Mediastinal adenopathy with subcarinal and right paratracheal nodes. 4. Additional finding of focal 3 cm airspace density in the superior segment right lower lobe and an anterior subpleural 1.4 cm parenchymal nodular density in the left upper lobe. D/ / 07/15/2017 11:03:39 Krish Walker MD / pablito Interpreting Provider: Krish Walker MD Echocardiogram 07/16/17 09:48 Impressions: LVEF 60-65%. Mild concentric left ventricular hypertrophy. Mild left ventricular diastolic dysfunction. Normal right ventricular structure and function. Mild pulmonic regurgitation. Mild tricuspid regurgitation. Mild pulmonary hypertension. There is a PFO by agitated saline contrast, Left Ventricular Wall Motion: Rest Echo Findings All wall segments showed normal motion. Findings: Study Quality * Technically adequate exam. ECG Findings * Normal sinus rhythm. Left Ventricle * LVEF 60-65%. * Mild concentric left ventricular hypertrophy. * Mild left ventricular diastolic dysfunction. Right Ventricle * Normal right ventricular structure and function. Left Atrium * Normal left atrial size. Right Atrium * Normal right atrial size. Mitral Valve * Normal mitral valve structure. * No mitral stenosis. * No mitral regurgitation. Aortic Valve * No aortic regurgitation. * No aortic stenosis. * Trileaflet aortic valve. * Mildly calcified aortic valve leaflets. Tricuspid Valve * Tricuspid valve not well visualized. * Estimated RA pressure is 3 mmHg. * Estimated RVSP is 36 mmHg. * Mild pulmonary hypertension. * Mild tricuspid regurgitation. Pulmonic Valve * Pulmonic valve is not well visualized. * No pulmonic stenosis. * Mild pulmonic regurgitation. Pulmonary Artery * Pulmonary artery not well visualized. Aorta * Normally sized aortic root. Pericardium * There is no pericardial effusion present. Interatrial Septum * There is a PFO by agitated saline contrast, IVC * Normal IVC dimensions and inspiratory collapse. - Attending Attestation CVA possibly embolic Neurology recommending LAINE COntinue ASA PLAvix and atorvastatin start Lovenox Possible metastatic disease, unknown primary tumor, has a left iliac and multiple vertebrae leions CT scan of the chest shows a right lower lobe mass like opacity, less likely pneumonia Discontinue Levaquin, consider resuming antibiotics if not improving Oncology consulted, will schedule possibly a lung biopsy I examined this patient and my medical decision-making was reviewed with the Resident Physician. I agree with the documented findings, disposition and treatment plan as described except to the extent set forth below.
[2017-07-16] MEDS: 0.9 % Sodium Chloride 1,000 ML IVC SCH (11:30)
[2017-07-16] MEDS: Losartan/HCTZ 50-12.5 TABLET PO SCH (11:30)
--- NOTE | 2017-07-16 12:35 | Neurology Progress Note ---
Date of Encounter: 07/16/17 Time of Encounter: 12:33 Assessment and Plan (1) CVA (cerebral vascular accident) Current Visit: Yes Status: Acute 71 year old man with PMH significant for HTN, DM, obesity who developed acute onset of binocular diplopia lasting few hours in duration as well as balance difficulty, with rapid resolution. MRI of brain showed presence of acute infarct involving the cerebellar nodule at the vermis which likely caused the double vision and balance difficulty. There is also probable punctate infarct at the right posterior frontal subcortical region which can not be excluded and if this were real lesion then sine the two acute DW signal changes are from two different vascular territory embolic stroke should be consider until proven otherwise. TTE showed normal LVEF of 60-65%, presence of PFO via saline contrast. Patient is currently taking aspirin 81mg and plavix 75mg daily. Await LAINE. If LAINE showed no additional abnormality then will keep him on aspirin 81mg and plavix 75mg daily. Also await carotid artery duplex study result Qualifiers: CVA mechanism: embolism Precerebral and cerebral artery: unspecified precerebral artery Qualified Code(s): I63.10 - Cerebral infarction due to embolism of unspecified precerebral artery Subjective Principal diagnosis: CVA, diplopia Interval history: Patient seen and examined. He feels better and denies any double vision today. Been having some problems with the hips causing balance difficulty He is in the process of getting hip biopsy. Is waiting to get LAINE tomorrow morning. TTE did show presence of PFO via saline contrast. normal LVEF of 60-65%. No regional wall motion abnormality noted. Objective - Constitutional Vitals: Temp Pulse Resp BP Pulse Ox 98.5 F 86 16 133/68 94 07/16/17 08:32 07/16/17 08:32 07/16/17 08:32 07/16/17 08:32 07/16/17 08:32 - Neurological Exam Motor Examination: Present: full strength in all major muscle groups Motor examination - left side: 5/5: deltoids, biceps, triceps, wrist flexion, wrist extension, hip flexors, floor covering printer assistant, quadriceps, tibialis Anterior, toe extension (EHL), plantarflexion Mental Status Examination: Present: awake, alert, oriented to person, oriented to place, oriented to time, follows commands appropriately, answers questions appropriately, no agnosia, no aphasia, no aproxia Cranial nerve examination: Present: PERRL, EOMI, visual dozier intact, corneal reflexes brisk symmetrically, sensory to face intact, mastication intact, no facial asymmetry is present, no dysarthria, hearing is intact symmetrically, soft palate elevates bilaterally upon phonation, gag reflex intact, flexes SCM and trapezius muscles symmetrically with full power, tongue protrudes midline, no atrophy or facial fasiculations present Cerebellar examination: Present: no dysmetria, performs finger to nose and heel to viera symmetrically without ataxia, no gait ataxia (Gait not assessed), no difficulty with rapid alternating movements Results - Laboratory Findings CBC and BMP: 07/16/17 04:59 07/16/17 04:59 Abnormal lab findings: Abnormal lab results RBC 3.50 M/mcL (4.19-5.50) L 07/16/17 04:59 Hgb 10.0 g/dL (12.9-16.9) L D 07/16/17 04:59 Hct 30.8 % (37.5-50.1) L 07/16/17 04:59 Monocytes # 1.5 K/mcL (0.0-1.3) H 07/16/17 04:59 PT 15.4 Seconds (9.4-12.1) H 07/16/17 04:59 Potassium 2.8 mEq/L (3.5-5.1) L 07/16/17 04:59 Carbon Dioxide 32 mEq/L (23-29) H 07/16/17 04:59 BUN 28 mg/dL (8-23) H 07/16/17 04:59 Creatinine 1.48 mg/dL (0.70-1.30) H 07/16/17 04:59 Est GFR ( Amer) 57 (> 60) L 07/16/17 04:59 Est GFR (Non-Af Amer) 47 (> 60) L 07/16/17 04:59 POC Glucose 107 mg/dL (70-99) H 07/15/17 07:36 Calcium 8.5 mg/dL (8.6-10.3) L 07/16/17 04:59 Troponin I 0.23 ng/mL (< 0.04) H* 07/15/17 21:33 Urine Protein 30 mg/dL (Neg-Trace) H 07/15/17 13:45 Urine Blood Small (Negative) H 07/15/17 13:45 Consult Discharge Plan - Plan Referrals: Peng Cardenas DO [Primary Care Provider] -
[2017-07-16] MEDS ORDERED: Isovue-370 500 ML INFUS..BTL IV ONE ×3 (13:39→14:50)
[2017-07-16] MEDS: *HR* HYDROcodone/Acet 5/325 mg TABLET PO PRN (14:20)
[2017-07-16] MEDS ORDERED: *HR* Enoxaparin 30 MG/0.3 ML SYRINGE SQ SCH (18:00)
[2017-07-16] MEDS ORDERED: *HR* Heparin 5,000 UNIT/ML VIAL IVP ONE (18:20)
[2017-07-16] MEDS ORDERED: *HR* Heparin 5,000 UNIT/ML VIAL IVP PRN ×2 (18:27)
[2017-07-16 19:25] LABS: Basophils # 0.1 K/mcL (0.0-0.2); Basophils % 0.4 %; Eosinophils # 0.4 K/mcL (0.0-0.6); Hematocrit 33.5 % (37.5-50.1); Immature Granulocytes % 0.6 % (0-4); Lymphocytes # 1.9 K/mcL (0.6-4.6); Mean Corpuscular HGB Conc 32.8 g/dL (31.6-35.5); Mean Corpuscular Hemoglobin 28.9 pg (28.0-33.3); Mean Corpuscular Volume 87.9 fL (83.0-100.0); Mean Platelet Volume 10.5 fL (9.4-12.4); Monocytes # 1.4 K/mcL (0.0-1.3); Monocytes % 11.5 %; Neutrophils # 8.3 K/mcL (1.6-8.9); Platelet Count 312 K/mcL (140-400); Red Blood Count 3.81 M/mcL (4.19-5.50); Red Cell Distribution Width 12.6 % (11.5-14.5); Segmented Neutrophils % 68.5 %
[2017-07-16 19:32] LABS: INR 1.3; Prothrombin Time 14.1 Seconds (9.4-12.1)
[2017-07-16 19:34] LABS: Activated Partial Thrombo Time 33.1 Seconds (26.0-36.0)
[2017-07-16] MEDS: Heparin 25,000 UNIT/500 ML D5W 25,000 UNIT/500 ML BAG IVC SCH (20:21)
[2017-07-17 04:14] LABS: Basophils # 0.1 K/mcL (0.0-0.2); Basophils % 0.4 %; Eosinophils # 0.5 K/mcL (0.0-0.6); Eosinophils % 3.9 %; Hematocrit 31.7 % (37.5-50.1); Hemoglobin 10.5 g/dL (12.9-16.9); Immature Granulocytes % 0.9 % (0-4); Lymphocytes # 1.8 K/mcL (0.6-4.6); Lymphocytes % 14.7 %; Mean Corpuscular HGB Conc 33.1 g/dL (31.6-35.5); Mean Corpuscular Hemoglobin 28.9 pg (28.0-33.3); Mean Corpuscular Volume 87.3 fL (83.0-100.0); Mean Platelet Volume 10.6 fL (9.4-12.4); Monocytes # 1.6 K/mcL (0.0-1.3); Monocytes % 13.2 %; Neutrophils # 8.2 K/mcL (1.6-8.9); Platelet Count 323 K/mcL (140-400); Red Blood Count 3.63 M/mcL (4.19-5.50); Red Cell Distribution Width 12.6 % (11.5-14.5); Segmented Neutrophils % 66.9 %
[2017-07-17] MEDS: *HR* HYDROcodone/Acet 5/325 mg TABLET PO PRN ×2 (04:14→18:44)
[2017-07-17 04:27] LABS: BUN/Creatinine Ratio 15 (6-26); Blood Urea Nitrogen 18 mg/dL (8-23); Calcium 8.9 mg/dL (8.6-10.3); Carbon Dioxide 30 mEq/L (23-29); Chloride 101 mEq/L (98-107); Glucose 112 mg/dL (70-105); Osmolality,Calculated 289 (280-300); Potassium 3.3 mEq/L (3.5-5.1); Sodium 138 mEq/L (136-145); eGFR For African Americans > 60 (> 60); eGFR For Non-African Americans 57 (> 60)
[2017-07-17 04:36] LABS: Activated Partial Thrombo Time 120.1 Seconds (26.0-36.0)
[2017-07-17 05:36] LABS: Heparin anti-factor XA UFH 0.97 IU/mL (0.30-0.70)
--- NOTE | 2017-07-17 08:24 | Internal Med Progress Note ---
<Florentin Luna T - Last Filed: 07/17/17 16:01> Date of Encounter: 07/17/17 - Assessment and plan (1) Visual field defect Current Visit: Yes Status: Acute (2) Community acquired pneumonia Current Visit: Yes Status: Acute Qualifiers: Laterality: right Lung location: unspecified part of lung Qualified Code( s): J18.9 - Pneumonia, unspecified organism (3) Elevated troponin Current Visit: Yes Status: Acute (4) Hypertension Current Visit: Yes Status: Chronic Qualifiers: Hypertension type: essential hypertension Qualified Code(s): I10 - Essential (primary) hypertension (5) Bone metastases Current Visit: Yes Status: Acute (6) CKD (chronic kidney disease), stage III Current Visit: Yes Status: Chronic (7) CVA (cerebral vascular accident) Current Visit: Yes Status: Acute Qualifiers: CVA mechanism: embolism Precerebral and cerebral artery: unspecified precerebral artery Qualified Code(s): I63.10 - Cerebral infarction due to embolism of unspecified precerebral artery (8) Hypokalemia Current Visit: Yes Status: Acute - Time Spent With Patient Total time spent is greater than 50% in coordination of care (as documented) at patient's floor/unit and/or counseling patient: - Constitutional Vitals: Temp Pulse Resp BP Pulse Ox 98.0 F 76 18 122/73 92 07/17/17 10:30 07/17/17 10:30 07/17/17 10:30 07/17/17 10:30 07/17/17 10:30 Internal Medicine: Result - Labs CBC & Chem 7: 07/17/17 03:32 07/17/17 03:32 Labs: Short CBC 07/16/17 07/17/17 Range/Units 19:12 03:32 WBC 12.2 H 12.2 H (4.3-11.1) K/mcL Hgb 11.0 L 10.5 L (12.9-16.9) g/dL Hct 33.5 L 31.7 L (37.5-50.1) % Plt Count 312 323 (140-400) K/mcL Neutrophils # 8.3 8.2 (1.6-8.9) K/mcL BMP 07/17/17 03:32 Sodium 138 Potassium 3.3 L Chloride 101 Carbon Dioxide 30 H BUN 18 Creatinine 1.24 Glucose 112 H Calcium 8.9 - ABG Interpretation ABG results: PT/INR, D-dimer PT 14.1 Seconds (9.4-12.1) H 07/16/17 19:12 Consult Discharge Plan - Plan Referrals: Peng Cardenas DO [Primary Care Provider] - 07/24/17 11:30 am - Attending Attestation I examined this patient and my medical decision-making was reviewed with the Resident Physician. I agree with the documented findings, disposition and treatment plan as described except to the extent set forth below. 71 M with new diagnosis of possible lung CA with bone mets (suspect brain, bone and spine), suspect CVA, left lower extremity DVT, acute PE. He is seen and examined at the bedside with family members. He has no new complaints. Trans Esophageal echocardiogram done today showed aneurysmal interatrial septum with positive bubble study for right left shunt and a residential plaquing of the descending thoracic aorta, no intracardiac thrombus identified. Patient is awaiting pulmonary evaluation for bronchoscopy and lung biopsy, as well as oncology evaluation with metastatic disease. Physical examination is remarkable for point spine tenderness along the lumbar region, no paraspinal swelling. Chest is clear to auscultation bilaterally. Labs and imaging reviewed and noted. Plan is to continue heparin infusion, transition to Lovenox after procedure, for tissue diagnosis by biopsy pulmonary evaluation pending, oncology evaluation pending. Continue other management No intracardiac thrombus. Rest of details as in the resident physicians documentation. <Nakul Montaño - Last Filed: 07/17/17 16:38> Date of Encounter: 07/17/17 Time of Encounter: 14:00 - Assessment and plan (1) CVA (cerebral vascular accident) Current Visit: Yes Status: Acute Assessment and plan: Patient developed double vision at 3 AM on 07/14/17. MRI Brain shows acute infarct on cerebellar nodules at vermis. Likely cause of visual disturbances. No ischemic EKG changes Carotid duplex with 40-59% R ICA occlusion, 60-79% L ICA occlusion Echo demonsrates aneurysmal interatrial septum with positive bubble study for right to left shunting. Intracardiac throbus not identified. Cardiology has seen patient and has no further acute cardiac recommendations. BL LE dopplers demonstrates left LE acute DVT in gastronemius. Spoke with Dr. Ba, difficult to differentiate hypercoagulable state vs cardioembolic origin. Will perform bronchoscopy of Right central lung mass as outpatient when patient is more stable. Start on lovenox 30mg SQ Qualifiers: CVA mechanism: embolism Precerebral and cerebral artery: unspecified precerebral artery Qualified Code(s): I63.10 - Cerebral infarction due to embolism of unspecified precerebral artery (2) Pulmonary embolism Current Visit: Yes Status: Acute Assessment and plan: CT chest with contrasts confirms acute PE best seen in left lower lobe pumonary arteries, suspected in other pulmonary arteries as well. Start Lovenox. Spoke with Dr. Gastelum. Will perform bronchoscopy of Right central lung mass outpatient after resolution of PE. (3) Visual field defect Current Visit: Yes Status: Acute Assessment and plan: resolved (4) Elevated troponin Current Visit: Yes Status: Acute Assessment and plan: Troponins 0.08, 0.12, 0.17, 0.23 in setting of CVA and CKD. Also in setting of possible metastatic cancer--lung and bone masses. Suspect demand ischemia, nondiagnostic for ACS. Reports occasional left sided sharp chest pain with no alleviating or exacerbating factors. Standard stress test 2016 negative for ischemia. TTE LVEF 60-65%. Mild cLVH. Mild LVDD, normal RV structure and function. Mild [place] , mild TR, mild phtn. There is a PFO by agitated saline contrast. No ischemic EKG changes. No inpatient ischemic evaluation is warranted at this time in setting of CVA. (5) Hypokalemia Current Visit: Yes Status: Acute Assessment and plan: Potassium Chloride 40 meq PO once. Monitor with am labs (6) Hypertension Current Visit: Yes Status: Chronic Assessment and plan: Blood pressure well controlled and stable. Qualifiers: Hypertension type: essential hypertension Qualified Code(s): I10 - Essential (primary) hypertension (7) Bone metastases Current Visit: Yes Status: Acute Assessment and plan: Patient has history of weight loss for 40 Lb over the last 2 months, loss of balance, PET scan shows spine and right iliac increased uptake. Primary source likely right central mass. Plan for outpatient bronchoscopy. (8) CKD (chronic kidney disease), stage III Current Visit: Yes Status: Chronic Assessment and plan: CKD stages 3 has been stable, avoid nephrotoxins (9) DVT (deep venous thrombosis) Current Visit: Yes Status: Acute Assessment and plan: Start on Lovenox. - Time Spent With Patient Total time spent is greater than 50% in coordination of care (as documented) at patient's floor/unit and/or counseling patient: Greater than 35 minutes - Subjective Interval history: Patient's visual disturbances have improved. Denies CP, SOB, cough. Overall continues to be asymptomatic. Voiding without difficulty. Did not eat today pending LAINE and possible bronchoscopy. No further acute complaints. - Constitutional Vitals: Temp Pulse Resp BP Pulse Ox 98.5 F 84 16 124/68 93 07/17/17 06:46 07/17/17 06:46 07/17/17 06:46 07/17/17 06:46 07/17/17 06:46 General appearance: Present: A&O X 3, pleasant, no acute distress - Head Head exam: Present: atraumatic, normocephalic - Eye Eye exam: Present: EOMI, conjuntiva pink, sclera anicteric - Neck Neck exam general surgery: Present: supple, trachea midline. Absent: lymphadenopathy - Respiratory Respiratory exam: Present: CTAB. Absent: accessory muscle use, rales, rhonchi, wheezes - Cardiovascular Cardiovascular exam: Present: RRR, +S1, +S2. Absent: diastolic murmur, gallop, rubs, systolic murmur - GI/Abdominal GI/Abdominal exam: Present: normal bowel sounds, soft, no peritoneal signs. Absent: distended, tenderness - Extremities Exam Extremities exam: Present: warm, radial pulses palpable and symmetrical. Absent : calf tenderness, cyanotic, pedal edema - Neurological Exam Neurological exam: Present: CN II-XII intact, oriented X3, no focal deficits. Absent: pronater drift, facial droop, speech deficit - Skin Skin exam: Present: dry, intact Internal Medicine: Result - Labs CBC & Chem 7: 07/17/17 03:32 07/17/17 03:32 Labs: Short CBC 07/16/17 07/17/17 Range/Units 19:12 03:32 WBC 12.2 H 12.2 H (4.3-11.1) K/mcL Hgb 11.0 L 10.5 L (12.9-16.9) g/dL Hct 33.5 L 31.7 L (37.5-50.1) % Plt Count 312 323 (140-400) K/mcL Neutrophils # 8.3 8.2 (1.6-8.9) K/mcL BMP 07/17/17 03:32 Sodium 138 Potassium 3.3 L Chloride 101 Carbon Dioxide 30 H BUN 18 Creatinine 1.24 Glucose 112 H Calcium 8.9 - ABG Interpretation ABG results: PT/INR, D-dimer PT 14.1 Seconds (9.4-12.1) H 07/16/17 19:12 - VTE Documentation of Mechanical Device: Intermittent pneumatic compression device
[2017-07-17] MEDS: Aspirin 81 MG TAB.CHEW PO SCH (08:40)
[2017-07-17] MEDS: Acetaminophen 325 MG TABLET PO PRN ×2 (08:45→16:45)
--- NOTE | 2017-07-17 09:53 | Neurology Progress Note ---
Date of Encounter: 07/17/17 Time of Encounter: 09:42 Assessment and Plan (1) CVA (cerebral vascular accident) Current Visit: Yes Status: Acute Patient's diplopia has resolved. MRI of the brain shows acute infarct in the cerebellar nodule at the vermis TTE shows LVEF of 60-65% with presence of PFO. Carotid artery duplex shows 40-59% stenosis in the right ICA and 60-79% stenosis in the left ICA. Patient underwent CT of the chest which showed a lung mass in the right hilum apical lung cancer and acute pulmonary embolism in the left lower lobe. Plan: Patient will undergo LAINE today to rule out cardioembolic origin. Patient has hypercoagulable state secondary to lung cancer. With PFO seen on TTE, patient's stroke may be explained by embolic origin from the right side of the heart. Recommend b/l LE dopplers. Continue aspirin, plavix. Patient started on heparin for PE. Qualifiers: CVA mechanism: embolism Precerebral and cerebral artery: unspecified precerebral artery Qualified Code(s): I63.10 - Cerebral infarction due to embolism of unspecified precerebral artery Subjective Principal diagnosis: CVA, diplopia Interval history: No acute events overnight. Patient reports his diplopia has not returned. He is able to ambulate independently and tolerating his diet. Plan is for LAINE today. Objective - Constitutional Vitals: Temp Pulse Resp BP Pulse Ox 98.5 F 84 16 124/68 93 07/17/17 06:46 07/17/17 06:46 07/17/17 06:46 07/17/17 06:46 07/17/17 06:46 - Neurological Exam Motor Examination: Present: full strength in all major muscle groups Motor examination - right side: 5/5: deltoids, biceps, triceps, wrist flexion, wrist extension, lasting room machine operator, hip flexors, tibialis Anterior, quadriceps, toe extension (EHL), plantarflexion Motor examination - left side: 5/5: deltoids, biceps, triceps, wrist flexion, wrist extension, hip flexors, lasting room machine operator, quadriceps, tibialis Anterior, toe extension (EHL), plantarflexion Reflexes: Biceps: 2+, Triceps: 2+, Brachioradialis: 2+, Patella: 2+, Achilles: 2 + Mental Status Examination: Present: awake, alert, oriented to person, oriented to place, oriented to time, follows commands appropriately, answers questions appropriately, no agnosia, no aphasia, no aproxia Cranial nerve examination: Present: PERRL, EOMI, visual dozier intact, corneal reflexes brisk symmetrically, sensory to face intact, mastication intact, no facial asymmetry is present, no dysarthria, hearing is intact symmetrically, soft palate elevates bilaterally upon phonation, gag reflex intact, flexes SCM and trapezius muscles symmetrically with full power, tongue protrudes midline, no atrophy or facial fasiculations present Cerebellar examination: Present: no dysmetria, performs finger to nose and heel to viera symmetrically without ataxia, no gait ataxia (able to ambulate independently ), no difficulty with rapid alternating movements - VTE Documentation of Mechanical Device: Intermittent pneumatic compression device Results - Laboratory Findings CBC and BMP: 07/17/17 03:32 07/17/17 03:32 Abnormal lab findings: Abnormal lab results WBC 12.2 K/mcL (4.3-11.1) H 07/17/17 03:32 RBC 3.63 M/mcL (4.19-5.50) L 07/17/17 03:32 Hgb 10.5 g/dL (12.9-16.9) L 07/17/17 03:32 Hct 31.7 % (37.5-50.1) L 07/17/17 03:32 Monocytes # 1.6 K/mcL (0.0-1.3) H 07/17/17 03:32 PT 14.1 Seconds (9.4-12.1) H 07/16/17 19:12 APTT 120.1 Seconds (26.0-36.0) H* D 07/17/17 03:32 Heparin Anti-Xa, Unfract 0.97 IU/mL (0.30-0.70) H 07/17/17 03:32 Potassium 3.3 mEq/L (3.5-5.1) L 07/17/17 03:32 Carbon Dioxide 30 mEq/L (23-29) H 07/17/17 03:32 Est GFR (Non-Af Amer) 57 (> 60) L 07/17/17 03:32 Glucose 112 mg/dL (70-105) H 07/17/17 03:32 POC Glucose 107 mg/dL (70-99) H 07/15/17 07:36 Troponin I 0.23 ng/mL (< 0.04) H* 07/15/17 21:33 Urine Protein 30 mg/dL (Neg-Trace) H 07/15/17 13:45 Urine Blood Small (Negative) H 07/15/17 13:45 Consult Discharge Plan - Plan Referrals: Peng Cardenas DO [Primary Care Provider] - 07/24/17 11:30 am
[2017-07-17] MEDS ORDERED: *HR* Midazolam HCl 2 MG/2 ML VIAL IVP PRN (09:58)
[2017-07-17] MEDS ORDERED: Tetracaine/Benzocaine/Butamben 200MG/SPRAY (100SPY/BOT) MM ONE (09:58)
[2017-07-17] MEDS ORDERED: 0.9 % Sodium Chloride 500 ML IVC ONE (09:58)
[2017-07-17] MEDS ORDERED: *HR* Midazolam HCl 5 MG/5 ML VIAL IVP ONE ×3 (10:36→10:38)
[2017-07-17] MEDS: *HR* FentaNYL (PF) 100 MCG/2 ML VIAL IVP PRN ×2 (10:55→11:00)
--- NOTE | 2017-07-17 13:09 | Pulmonology Consult Note ---
Date of Encounter: 07/17/17 Time of Encounter: 13:00 Assessment and Plan (1) Mass of hilum Current Visit: Yes Status: Acute Patient presenting with right hilar mass with some mediastinal lymphadenopathy with some lung nodules . Hilar mass is concerning for primary lung malignancy since patient had an acute DVT with PE with patent foramen ovale most likely some shower emboli into the brain patient is on anti-coagulation since patient is on anticoagulation with background of PE and most likely embolic stroke it is not prudent to stop anticoagulation for biopsy purposes will wait out this week so he can fully anticogulated on discharge change it to Lovenox . Will schedule for EBUS with Lung Biopsy next sunday . Will hold anticoagulants for 12 hrs before procedure if it Lovenox . Most likely it looks like metastatic lung ca small cell (2) Pulmonary embolism Current Visit: Yes Status: Acute To continue therapeutic anticoagulation . To continue prn bronchodilators . The hypoxic respiratory failure is due to V/Q mismatch because of PE less likely due to pneumonia . Qualifiers: Acute cor pulmonale presence: without acute cor pulmonale Qualified Code(s) : I26.99 - Other pulmonary embolism without acute cor pulmonale (3) DVT (deep venous thrombosis) Current Visit: Yes Status: Acute To continue anticoagulation Qualifiers: DVT location: lower extremity Chronicity: acute Laterality: left Qualified Code(s): I82.402 - Acute embolism and thrombosis of unspecified deep veins of left lower extremity (4) Cerebellar stroke Current Visit: Yes Status: Acute most likely embolic , neurology following no contraindication for anticoagulation History of Present Illness Consult date: 07/17/17 Requesting physician: Nakul Montaño Reason for consult: other (double vision ) Chief complaint: Double vision History of present illness: 71-year-old male former smoker was investigated for weight loss for possible metastatic cancer he was set to get bone biopsy in [facility] on but he developed in the meantime signs of stroke with double vision with some balance issues the family was concerned for stroke and he was admitted to the ER for further stroke workup. During the workup it was found. A mild cerebellar ischemic stroke the CT imaging showed right hilar mass with some mediastinal lymphadenopathy and also with some metastatic lung nodules and also with osteolytic lesion pulmonary was consulted for biopsy of the right hilar mass. During the workup it was also found patient has a lower extremity DVT and also left pulmonary embolism and he was started on heparin drip. Patient denied any active pulmonary symptoms except for some back pain and hip pain. Denies any other constitutional symptoms . Denies any muscle weakness , LAINE showed some patent foramen ovale . Past Med Surg Social Fam HX - Past Medical History Medical history: arthritis, hyperlipidemia, hypertension Psychiatric history: no psych history - Past Surgical History Surgical History: cholecystectomy - Social History Smoking Status: Former smoker Smokeless Tobacco Status: No Alcohol use: none Drug use: none Medications and Allergies Aspirin [Adult Low Dose Aspirin EC] 81 mg PO DAILY 11/20/14 [History] Atorvastatin [Lipitor] 40 mg PO HS 11/20/14 [History] Losartan/Hydrochlorothiazide [Hyzaar 100-25 Tablet] 1 tab PO DAILY 11/20/14 [ History] HYDROcodone/Acet 5/325 mg [Monclova 5-325 mg] 1 tab PO BID PRN 07/15/17 [History] 3 Allergy/AdvReac Type Severity Reaction Status Date / Time No Known Allergies Allergy Verified 07/15/17 09:11 All Systems: The remainder of the systems were reviewed and are negative Physical Examination Vital Signs: Vital Signs, Last 4 Hours Temp Pulse Resp BP Pulse Ox 07/17/17 10:30 98.0 F 76 18 122/73 92 Auscultation: bilateral: clear Results - Laboratory Findings CBC and BMP: 07/17/17 03:32 07/17/17 03:32 PT/INR, D-dimer PT 14.1 Seconds (9.4-12.1) H 07/16/17 19:12 Abnormal lab findings: Abnormal lab results WBC 12.2 K/mcL (4.3-11.1) H 07/17/17 03:32 RBC 3.63 M/mcL (4.19-5.50) L 07/17/17 03:32 Hgb 10.5 g/dL (12.9-16.9) L 07/17/17 03:32 Hct 31.7 % (37.5-50.1) L 07/17/17 03:32 Monocytes # 1.6 K/mcL (0.0-1.3) H 07/17/17 03:32 PT 14.1 Seconds (9.4-12.1) H 07/16/17 19:12 APTT 120.1 Seconds (26.0-36.0) H* D 07/17/17 03:32 Heparin Anti-Xa, Unfract 0.97 IU/mL (0.30-0.70) H 07/17/17 03:32 Potassium 3.3 mEq/L (3.5-5.1) L 07/17/17 03:32 Carbon Dioxide 30 mEq/L (23-29) H 07/17/17 03:32 Est GFR (Non-Af Amer) 57 (> 60) L 07/17/17 03:32 Glucose 112 mg/dL (70-105) H 07/17/17 03:32 POC Glucose 107 mg/dL (70-99) H 07/15/17 07:36 Troponin I 0.23 ng/mL (< 0.04) H* 07/15/17 21:33 Urine Protein 30 mg/dL (Neg-Trace) H 07/15/17 13:45 Urine Blood Small (Negative) H 07/15/17 13:45 - Clinical Findings Intake & Output: Intake & Output 07/16/17 07/17/17 07/17/17 23:59 07:59 15:59 Intake Total 258 / 258 217 / 217 Output Total 830 / 830 Balance -572 / -572 217 / 217 Weight 110.2 kg 109.769 kg Consult Discharge Plan - Plan Referrals: Peng Cardenas DO [Primary Care Provider] - 07/24/17 11:30 am
[2017-07-17] MEDS: Heparin 25,000 UNIT/500 ML D5W 25,000 UNIT/500 ML BAG IVC SCH ×2 (14:31→16:28)
--- NOTE | 2017-07-17 16:08 | Electrocardiograph Report ---
[address] [address] Test Date: 2017-07-15 Pat Name: [place] Department: 103 Room: 2NE22 Gender: M Employee Relations Consultant: BROWN : 1945 Requested By: Vishal Montaño Order Number: [id number] Reading MD: Arash Silver Measurements Intervals [place] Rate: 80 P: -2 [place]: 162 QRS: -29 QRSD: 111 T: 23 QT: 391 QTc: 427 Interpretive Statements SINUS RHYTHM BORDERLINE LEFT AXIS DEVIATION INCOMPLETE RIGHT BUNDLE BRANCH BLOCK Electronically Signed On 07-17-2017 16:06:47 EDT by Arash Silver
--- NOTE | 2017-07-17 16:29 | Oncology Inp Consult Note ---
<Dede Mccoy L - Last Filed: 07/18/17 15:53> Date of Encounter: 07/18/17 Time of Encounter: 15:00 Assessment and Plan (1) Pulmonary embolism Status: Acute Assessment and plan: CT chest with incidental finding of acute pulmonary embolism which is best seen in the left lower lobe pulmonary arteries, however suspected in other pulmonary arteries as well. Hypercoagulable state in presence of malignancy. Bilateral venous doppler reveals acute deep venous thrombosis is present in the left gastrocnemius vein. Currently on heparin gtt. Recommend transition to lovenox for discharge. Recommend to continue lovenox injections through EBUS procedure, stop lovenox for 12 hours prior to procedure, continue lovenox until follow up with medical oncology-at which time patient will then likely transition to DOAC. Qualifiers: Pulmonary embolism type: other Chronicity: acute Acute cor pulmonale presence: without acute cor pulmonale Qualified Code(s): I26.99 - Other pulmonary embolism without acute cor pulmonale (2) Mass of hilum Status: Acute Assessment and plan: Right hilar mass. Radiographic imaging most likely consistent with lung primary, small cell remains of concern, however, unable to be determined without final IHC stains and pathology report. Elevated LDH makes small cell of further concern. CT chest, abdomen and pelvis as detailed in HPI concerning for metastatic disease to bony pelvis and spine with pathological fracture of L2 with several lytic lesions,nodules in left lung, and mediastinal nodes. Location not amendable to core needle lung biopsy due to mass encasing pulmonary arteries. Discussed case with Dr. Gastelum, patient will be scheduled for EBUS on 07/24, EBUS slightly delayed due to presence of acute PE. Ordered MRI thoracic/lumbar spine for concern for intermittent, increased LE weakness to rule out spinal cord compression or abnormality. He denies saddle anesthesia or bladder/bowel incontinence. Dependent upon MRI results-if spinal cord compromised-will need to pursue biopsy torrey,otherwise, will keep biopsy for next Sunday. (3) Cerebellar stroke Status: Acute Assessment and plan: MRI of the brain shows acute infarct in the cerebellar nodule at the vermis. LAINE showed evidence of intraatrial septum aneurysm along with the findings of PFO. Patient's diplopia has resolved. (4) Weight loss, unintentional Status: Acute Assessment and plan: Reports 50 pound unintentional weight loss over past 6 weeks. [employer] following inpatient, continue with outpatient monitoring. Reports/nausea, retching and altered taste. Zofran PRN, please continue at discharge. (5) Bone metastases Status: Acute Assessment and plan: Will arrange for consult with radiation oncology on outpatient basis for potential palliative radiotherapy to painful bony lesions. Continue allegany - Data of Consult Patient: new to practice Consult date: 07/18/17 Requesting Physician: Vishal Montaño MD Primary Care Provider: Peng Cardenas, DO - Consult Narrative Reason for consult: Lung mass with metastatic disease History of present illness: Mr. Park is a 71 year old male with past medical history significant for hypertension and hyperlipidemia. Presented to [facility] ER on 07/15/2017 with report of imbalance, right eye pressure and diplopia. Following admission with neurological consultation, MRI revealed acute infarct in the cerebellar nodulus explaining his presenting symptoms. Mr. Park was in the process of outpatient workup for metastatic process. He reports increased lower back and hip pain for which his PCP has been working up. He has had difficulty with ambulation due to his pain and increased LLE weakness. He was scheduled to have a bone biopsy at [facility] per his PCP following imaging which revealed bony lytic lesions to his pelvis. Mr. aPrk also reports increased generalized weakness and fatigue. He is typically quite active and ambulates with a cane, however, his pain has been limiting his activities lately. He reports altered taste, decreased appetite, nausea and retching with a 50 pound weight loss over the past 6 weeks. He is a former smoker. CT chest/abdomen/pelvis with contrast reveals a lung mass in the right hilum, incidental findings of acute PE in the left lower lobe pulmonary arteries, however suspected in other pulmonary arteries as well, mediastinal adenopathy, pulmonary nodules seen in the left lung, metastatic disease at the level of T10 vertebral body and several lytic bony metastatic lesions with an associated pathologic fracture of the L2 vertebral body. He was placed on a heparin gtt for PE. He denies any associated symptoms of chest pain or increased SOB. BLE venous doppler reveals normal right lower extremity deep and superficial venous exam and acute deep venous thrombosis is present in the left gastrocnemius vein. Past Med Surg Social Fam HX - Past Medical History Medical history: arthritis, hyperlipidemia, hypertension Psychiatric history: no psych history - Past Surgical History Surgical History: cholecystectomy - Social History Smoking Status: Former smoker Smokeless Tobacco Status: No Alcohol use: none Drug use: none Medications and Allergies Aspirin [Adult Low Dose Aspirin EC] 81 mg PO DAILY 11/20/14 [History] Atorvastatin [Lipitor] 40 mg PO HS 11/20/14 [History] Losartan/Hydrochlorothiazide [Hyzaar 100-25 Tablet] 1 tab PO DAILY 11/20/14 [ History] HYDROcodone/Acet 5/325 mg [[place] 5-325 mg] 1 tab PO BID PRN 07/15/17 [History] Acetaminophen [Tylenol] 650 mg PO Q6HR PRN tablet 07/18/17 [Rx] Enoxaparin [Lovenox *PHARMACY WT BASED*] 110 mg SQ Q12H #12 syringe 07/18/17 [Rx ] Enoxaparin [Lovenox *PHARMACY WT BASED*] 110 mg SQ Q12H #60 syringe 07/18/17 [Rx ] Sennosides/Docusate Sodium [Senna Plus] 2 each PO BID PRN #60 tablet 07/18/17 [ Rx] 3 Allergy/AdvReac Type Severity Reaction Status Date / Time No Known Allergies Allergy Verified 07/15/17 09:11 Constitutional: Present: anorexia, fatigue, weakness, weight loss. Absent: chills, fever(s), frequent falls Eyes: Present: as per HPI, diplopia (now resolved) Nose, mouth and throat: Absent: dysphagia Cardiovascular: Present: dyspnea on exertion. Absent: chest pain, irregular heart rhythm, palpitations Respiratory: Present: dyspnea on exertion. Absent: hemoptysis, pain on inspiration Gastrointestinal: Present: nausea, other (retching). Absent: abdominal pain, change in bowel habits, hematemesis, hematochezia, melena, vomiting Additional comments: denies dysuria Musculoskeletal: Absent: numbness, tingling Integumentary: Absent: wounds Neurological: Present: as per HPI Psychiatric: Present: change in appetite Hematologic/Lymphatic: Present: as per HPI Oncology - Exam - Constitutional Vitals: Temp Pulse Resp BP Pulse Ox 98.0 F 76 18 122/73 92 07/17/17 10:30 07/17/17 10:30 07/17/17 10:30 07/17/17 10:30 07/17/17 10:30 General appearance: cooperative, no acute distress, no febrile - Head Head exam: Present: atraumatic - ENT ENT exam: Present: mucous membranes moist - Respiratory Respiratory exam: Present: decreased breath sounds, CTAB. Absent: respiratory distress - Cardiovascular Cardiovascular exam: Present: RRR, +S1, +S2 - GI/Abdominal GI/Abdominal exam: Present: normal bowel sounds, soft. Absent: tenderness - Extremities Exam Extremities exam: Present: normal inspection. Absent: calf tenderness - Neurological Exam Neurological exam: Present: alert, oriented X3, no focal deficits, strengths equal and symetr throughout - Psychiatric Psychiatric exam: Present: normal affect, normal mood - Skin Skin exam: Present: dry, intact, normal color, warm Oncology - Results Labs: Short CBC 07/16/17 07/17/17 Range/Units 19:12 03:32 WBC 12.2 H 12.2 H (4.3-11.1) K/mcL Hgb 11.0 L 10.5 L (12.9-16.9) g/dL Hct 33.5 L 31.7 L (37.5-50.1) % Plt Count 312 323 (140-400) K/mcL Neutrophils # 8.3 8.2 (1.6-8.9) K/mcL BMP 07/17/17 03:32 Sodium 138 Potassium 3.3 L Chloride 101 Carbon Dioxide 30 H BUN 18 Creatinine 1.24 Glucose 112 H Calcium 8.9 Consult Discharge Plan - Plan Referrals: Peng Cardenas DO [Primary Care Provider] - 07/24/17 11:30 am Prescriptions: Enoxaparin [Lovenox *PHARMACY WT BASED*] 110 mg SQ Q12H #60 syringe Enoxaparin [Lovenox *PHARMACY WT BASED*] 110 mg SQ Q12H #12 syringe Sennosides/Docusate Sodium [Senna Plus] 2 each PO BID PRN #60 tablet PRN Reason: Constipation <Hadley Phan - Last Filed: 07/19/17 13:43> Date of Encounter: 07/18/17 - Data of Consult Requesting Physician: Florentin Luna MD Primary Care Provider: Peng Cardenas DO - Consult Narrative History of present illness: Mr. Park is a 71 year old male Oncology - Exam - Constitutional Vitals: Temp Pulse Resp BP Pulse Ox 98.4 F 84 20 129/72 95 07/19/17 11:56 07/19/17 11:56 07/19/17 11:56 07/19/17 11:56 07/19/17 11:56 Oncology - Results Labs: Short CBC 07/19/17 Range/Units 03:47 WBC 10.2 (4.3-11.1) K/mcL Hgb 10.2 L (12.9-16.9) g/dL Hct 31.5 L (37.5-50.1) % Plt Count 369 (140-400) K/mcL BMP 07/18/17 07/19/17 04:09 03:47 Sodium 140 138 Potassium 3.6 3.7 Chloride 102 101 Carbon Dioxide 31 H 28 BUN 20 17 Creatinine 1.23 1.01 Glucose 105 95 Calcium 9.0 9.2 - Attending Attestation seen and examined patient and agree with assessment and plan. 1) Likely metastatic lung cancer: Plan for bronchoscopy tomorrow with bx. Given elevated LDH, the possibility of small cell is raised. 2) L Leg weakness: It is intermittent. Will get MRI spine to evaluate for possible cord impingement necessitating urgent radiation. 3) stroke: embolic via the PFO. 4) VTE: lovenox for now. Hold it in am for bronch. Can be discharged with rivaroxaban.
[2017-07-17] MEDS: *HR* Enoxaparin 30 MG/0.3 ML SYRINGE SQ SCH (17:21)
[2017-07-18 04:30] LABS: Basophils % 0.4 %; Eosinophils # 0.4 K/mcL (0.0-0.6); Hemoglobin 10.4 g/dL (12.9-16.9); Immature Granulocytes % 0.8 % (0-4); Lymphocytes # 1.5 K/mcL (0.6-4.6); Lymphocytes % 13.7 %; Mean Corpuscular HGB Conc 32.5 g/dL (31.6-35.5); Mean Corpuscular Hemoglobin 28.6 pg (28.0-33.3); Mean Corpuscular Volume 87.9 fL (83.0-100.0); Mean Platelet Volume 10.3 fL (9.4-12.4); Monocytes # 1.4 K/mcL (0.0-1.3); Monocytes % 13.2 %; Neutrophils # 7.4 K/mcL (1.6-8.9); Platelet Count 360 K/mcL (140-400); Red Blood Count 3.64 M/mcL (4.19-5.50); Red Cell Distribution Width 12.9 % (11.5-14.5); Segmented Neutrophils % 67.9 %
[2017-07-18 04:53] LABS: BUN/Creatinine Ratio 16 (6-26); Blood Urea Nitrogen 20 mg/dL (8-23); Carbon Dioxide 31 mEq/L (23-29); Chloride 102 mEq/L (98-107); Glucose 105 mg/dL (70-105); Osmolality,Calculated 293 (280-300); Potassium 3.6 mEq/L (3.5-5.1); Sodium 140 mEq/L (136-145); eGFR For African Americans > 60 (> 60); eGFR For Non-African Americans 58 (> 60)
[2017-07-18] MEDS: Acetaminophen 325 MG TABLET PO PRN ×3 (06:03→20:33)
[2017-07-18] MEDS: *HR* Enoxaparin 30 MG/0.3 ML SYRINGE SQ SCH (06:03)
--- NOTE | 2017-07-18 08:35 | Pulmonology Progress Note ---
Date of Encounter: 07/18/17 Time of Encounter: 08:30 Assessment and Plan (1) Mass of hilum Current Visit: Yes Status: Acute Will need EBUS guided biopsy with the background of PE and stroke let him be anti-coagulated for a week . Will do EBUS under GA next Sunday . (2) Pulmonary embolism Current Visit: Yes Status: Acute To continue AC bridge him to Lovenox . Counseled patient to stop Lovenox 12 hrs before the procedure . Qualifiers: Pulmonary embolism type: other Chronicity: acute Acute cor pulmonale presence: without acute cor pulmonale Qualified Code(s): I26.99 - Other pulmonary embolism without acute cor pulmonale (3) DVT (deep venous thrombosis) Current Visit: Yes Status: Acute To continue Lovenox Qualifiers: DVT location: lower extremity Chronicity: acute Laterality: left Qualified Code(s): I82.402 - Acute embolism and thrombosis of unspecified deep veins of left lower extremity (4) Cerebellar stroke Current Visit: Yes Status: Acute To follow Neuro Recs. Subjective Principal diagnosis: CVA, diplopia Interval history: Patient is doing well with no symptoms of chest pain , denies any shortness of breadth. Objective PUL Vital signs: Last Vital Signs Temp 98.4 F 07/18/17 07:36 Pulse 87 07/18/17 07:36 Resp 16 07/18/17 07:36 BP 125/70 07/18/17 07:36 Pulse Ox 94 07/18/17 07:36 Auscultation: bilateral: diminished breath sounds Results - Laboratory Findings CBC and BMP: 07/18/17 04:09 07/18/17 04:09 PT/INR, D-dimer PT 14.1 Seconds (9.4-12.1) H 07/16/17 19:12 Abnormal lab findings: Abnormal lab results RBC 3.64 M/mcL (4.19-5.50) L 07/18/17 04:09 Hgb 10.4 g/dL (12.9-16.9) L 07/18/17 04:09 Hct 32.0 % (37.5-50.1) L 07/18/17 04:09 Monocytes # 1.4 K/mcL (0.0-1.3) H 07/18/17 04:09 PT 14.1 Seconds (9.4-12.1) H 07/16/17 19:12 APTT 90.1 Seconds (26.0-36.0) H 07/17/17 12:57 Heparin Anti-Xa, Unfract 0.97 IU/mL (0.30-0.70) H 07/17/17 03:32 Carbon Dioxide 31 mEq/L (23-29) H 07/18/17 04:09 Est GFR (Non-Af Amer) 58 (> 60) L 07/18/17 04:09 POC Glucose 107 mg/dL (70-99) H 07/15/17 07:36 Troponin I 0.23 ng/mL (< 0.04) H* 07/15/17 21:33 Urine Protein 30 mg/dL (Neg-Trace) H 07/15/17 13:45 Urine Blood Small (Negative) H 07/15/17 13:45 - Clinical Findings Intake & Output: Intake & Output 07/17/17 07/18/17 07/18/17 23:59 07:59 15:59 Intake Total 510 / 510 120 / 120 Output Total 570 / 570 400 / 400 Balance -60 / -60 -280 / -280 Weight 115 kg - VTE Documentation of Mechanical Device: Intermittent pneumatic compression device Consult Discharge Plan - Plan Referrals: Peng Cardenas DO [Primary Care Provider] - 07/24/17 11:30 am Prescriptions: Enoxaparin [Lovenox *PHARMACY WT BASED*] 110 mg SQ Q12H #60 syringe Enoxaparin [Lovenox *PHARMACY WT BASED*] 110 mg SQ Q12H #12 syringe Sennosides/Docusate Sodium [Senna Plus] 2 each PO BID PRN #60 tablet PRN Reason: Constipation
[2017-07-18] MEDS ORDERED: *HR* Enoxaparin 100 MG/ML SYRINGE SQ ONE (09:06)
--- NOTE | 2017-07-18 10:13 | Discharge Summary ---
<Vinay Garcia - Last Filed: 07/18/17 10:09> - NOTES TO OUTPATIENT PROVIDER Notes to Outpatient Provider: Continue lovenox injections until EBUS procedure, stop lovenox for 12 hours prior to procedure, continue lovenox until follow up with medical oncology-at which time patient will then likely transition to DOAC. Date of Encounter: 07/18/17 Time of Encounter: 10:10 - Discharge Diagnosis (1) Mass of hilum Priority: Primary Status: Acute Assessment and Plan: Lung CA with bone mets (suspect brain, bone and spine) Spoke with Pulmonology/ Dr. Gastelum. Will perform endoscopic ultrasound guided bronchoscopic biopsy of right central lung mass outpatient Follow up with oncology as outpatient (2) Bone metastases Priority: Primary Status: Acute Assessment and Plan: Patient has history of weight loss for 40 Lb over the last 2 months, loss of balance, PET scan shows spine and right iliac increased uptake. Primary source likely right hilar mass. Continue pain control Plan for outpatient follow up. (3) Pulmonary embolism Priority: Primary Status: Acute Assessment and Plan: CT chest with contrasts confirms acute PE best seen in left lower lobe pumonary arteries, suspected in other pulmonary arteries as well. Continue Lovenox in the setting of lung metastatic cancer. Qualifiers: Pulmonary embolism type: other Chronicity: acute Acute cor pulmonale presence: without acute cor pulmonale Qualified Code(s): I26.99 - Other pulmonary embolism without acute cor pulmonale (4) DVT (deep venous thrombosis) Priority: Primary Status: Acute Assessment and Plan: Doppler U/S revealed acute deep venous thrombosis is present in the left gastrocnemius vein. Continue Lovenox in the setting of lung metastatic cancer. Qualifiers: DVT location: lower extremity Affected thrombotic vein of extremity: other lower extremity vein Chronicity: acute Laterality: right Qualified Code(s) : I82.491 - Acute embolism and thrombosis of other specified deep vein of right lower extremity (5) Cerebellar stroke Priority: Primary Status: Acute Assessment and Plan: Patient developed double vision at 3 AM on 07/14/17. MRI Brain shows acute infarct on cerebellar nodules at vermis. Likely cause of visual disturbances. No ischemic EKG changes Carotid duplex with 40-59% R ICA occlusion, 60-79% L ICA occlusion Echo demonsrates aneurysmal interatrial septum with positive bubble study for right to left shunting. Intracardiac throbus not identified. Cardiology has seen patient and has no further acute cardiac recommendations. BL LE dopplers demonstrates left LE acute DVT in gastronemius. Spoke with Dr. Ba, difficult to differentiate hypercoagulable state vs cardioembolic origin. Will perform bronchoscopy of Right central lung mass as outpatient when patient is more stable. Continue Lovenox SQ, The presence of two small ischemic infarct would not be considered contraindication for anticoagulation. (6) Elevated troponin Priority: Secondary Status: Acute Assessment and Plan: Troponins 0.08, 0.12, 0.17, 0.23 in setting of CVA and CKD. Also in setting of possible metastatic cancer--lung and bone masses. Suspect demand ischemia, nondiagnostic for ACS. Reports occasional left sided sharp chest pain with no alleviating or exacerbating factors. Standard stress test 2016 negative for ischemia. TTE LVEF 60-65%. Mild cLVH. Mild LVDD, normal RV structure and function. Mild [place] , mild TR, mild phtn. There is a PFO by agitated saline contrast. No ischemic EKG changes. No inpatient ischemic evaluation is warranted at this time in setting of CVA. (7) Hypertension Priority: Secondary Status: Chronic Assessment and Plan: Blood pressure well controlled and stable. Qualifiers: Hypertension type: essential hypertension Qualified Code(s): I10 - Essential (primary) hypertension (8) CKD (chronic kidney disease), stage III Priority: Secondary Status: Chronic Assessment and Plan: CKD stages 3 has been stable, avoid nephrotoxins (9) Hypokalemia Priority: Secondary Status: Resolved Assessment and Plan: Potassium Chloride 40 meq PO once. Monitor (10) Constipation Priority: Secondary Status: Acute Assessment and Plan: Patient is on opiods for metastatic bone pain Senna plus prn Qualifiers: Constipation type: drug induced constipation Qualified Code(s): K59.03 - Drug induced constipation Hospital course: Mr. Park is a 71 year old male with a past medical history significant for hypertension and hyperlipidemia. Presented to [facility] ER on 07/15/2017 with report of imbalance, right eye pressure and diplopia. Following admission with neurological consultation, MRI revealed acute infarct in the cerebellar nodulus explaining his presenting symptoms. Mr. Park was in the process of outpatient workup for metastatic process due to left hip pain and increased lower back for which his PCP has been working up. He has had difficulty with ambulation due to his pain. He was scheduled to have a bone biopsy at [facility] per his PCP following imaging which revealed bony lytic lesions to his pelvis. Mr. Park also reports increased generalized weakness and fatigue. He is typically quite active and ambulates with a cane, however, his pain has been limiting his activities lately. He reports altered taste, decreased appetite, nausea and retching with a 50 pound weight loss over the past 6 weeks. He is a former smoker. CT chest/abdomen/pelvis with contrast revealed a lung mass in the right hilum, incidental findings of acute PE in the left lower lobe pulmonary arteries , however suspected in other pulmonary arteries as well, mediastinal adenopathy , pulmonary nodules seen in the left lung, metastatic disease at the level of T10 vertebral body and several lytic bony metastatic lesions with an associated pathologic fracture of the L2 vertebral body. BLE venous doppler reveals normal right lower extremity deep and superficial venous exam and acute deep venous thrombosis is present in the left gastrocnemius vein. He was placed on a heparin gtt for PE then transitioned to Lovenox in the setting of metastatic cancer. Spoke with Pulmonology/ Dr. Gastelum. Will perform endoscopic ultrasound guided bronchoscopic biopsy of right central lung mass outpatient in 1 week. Continue Lovenox injections until EBUS procedure, stop lovenox for 12 hours prior to procedure, continue Lovenox until follow up with medical oncology-at which time patient will then likely transition to DOAC. Discharge discussed with: patient, family Time spent discussing smoking cessation with patient: more than 10 minutes - Time Spent with Patient Total time spent providing and/or coordinating discharge services: Greater than 30 minutes - Discharge Medications Prescriptions: Enoxaparin [Lovenox *PHARMACY WT BASED*] 110 mg SQ Q12H #60 syringe Enoxaparin [Lovenox *PHARMACY WT BASED*] 110 mg SQ Q12H #12 syringe Sennosides/Docusate Sodium [Senna Plus] 2 each PO BID PRN #60 tablet PRN Reason: Constipation Home Medications: Aspirin [Adult Low Dose Aspirin EC] 81 mg PO DAILY 11/20/14 [History] Atorvastatin [Lipitor] 40 mg PO HS 11/20/14 [History] Losartan/Hydrochlorothiazide [Hyzaar 100-25 Tablet] 1 tab PO DAILY 11/20/14 [ History] HYDROcodone/Acet 5/325 mg [[place] 5-325 mg] 1 tab PO BID PRN 07/15/17 [History] Acetaminophen [Tylenol] 650 mg PO Q6HR PRN tablet 07/18/17 [Rx] Enoxaparin [Lovenox *PHARMACY WT BASED*] 110 mg SQ Q12H #12 syringe 07/18/17 [Rx ] Enoxaparin [Lovenox *PHARMACY WT BASED*] 110 mg SQ Q12H #60 syringe 07/18/17 [Rx ] Sennosides/Docusate Sodium [Senna Plus] 2 each PO BID PRN #60 tablet 07/18/17 [ Rx] Allergies/Adverse Reactions: 3 Allergy/AdvReac Type Severity Reaction Status Date / Time No Known Allergies Allergy Verified 07/15/17 09:11 Date of admission: 07/16/17 18:52 Primary care physician: Peng Cardenas DO Consults: 07/17/17 11:38 Consult to Pulmonology [CONS] Routine Consulting Provider: [facility] [place] Reason for Consult: Metastatic disease, new right hilum mass encasing pulmonary arteries, possible primary source. Requires bronchoscopy. Call Completed: Yes Discharging clinician: Vinay Garcia Anticipated date of discharge: 07/18/17 - Constitutional Vitals: Temp Pulse Resp BP Pulse Ox 98.4 F 87 16 125/70 94 07/18/17 07:36 07/18/17 07:36 07/18/17 07:36 07/18/17 07:36 07/18/17 07:36 General appearance: Present: cooperative, A&O X 3, pleasant, no acute distress, obese, answers questions appropriately - Head Head exam: Present: atraumatic, normocephalic - Eye Eye exam: Present: PERRL, conjuntiva pink, sclera anicteric Pupils: Present: PERRL - ENT ENT exam: Present: mucous membranes moist, normal oropharynx - Neck Neck exam general surgery: Present: supple, trachea midline. Absent: lymphadenopathy - Respiratory Respiratory exam: Present: CTAB. Absent: accessory muscle use, rales, rhonchi, wheezes - Cardiovascular Cardiovascular exam: Present: RRR, +S1, +S2. Absent: diastolic murmur, gallop, rubs, systolic murmur - GI/Abdominal GI/Abdominal exam: Present: normal bowel sounds, soft, no peritoneal signs. Absent: distended, tenderness - Extremities Exam Extremities exam: Present: warm, radial pulses palpable and symmetrical. Absent : calf tenderness, cyanotic, pedal edema - Back Exam Back exam: Present: normal inspection. Absent: tenderness - Neurological Exam Neurological exam: Present: CN II-XII intact, oriented X3, no focal deficits. Absent: pronater drift, facial droop, speech deficit - Psychiatric Psychiatric exam: Present: normal affect, normal mood - Skin Skin exam: Present: dry, intact, normal color, warm - Patient Status Disposition: Home Health Service Condition: Fair Functional capacity at discharge: uses cane/walker Overall status at discharge: patient is not back to baseline - Discharge Instructions Follow Up With: Peng Cardenas DO [Primary Care Provider] - 07/24/17 11:30 am Forms: ED Satisfaction Letter - Diet and Activity Activity: ambulate only with your walker, as per physical therapy, increase activity as tolerated Diet: advance to your usual diet - VTE Documentation of Mechanical Device: Intermittent pneumatic compression device <Florentin Luna - Last Filed: 07/18/17 15:26> Orders not resulted at time of discharge: Pending orders 07/18/17 14:25 MR cervical spine wo con [MR] Stat MR lumbar spine wo con [MR] Stat MR thoracic spine wo con [MR] Stat Date of Encounter: 07/18/17 - Discharge Diagnosis (1) Elevated troponin Status: Acute (2) Hypertension Status: Chronic Qualifiers: Hypertension type: essential hypertension Qualified Code(s): I10 - Essential (primary) hypertension (3) Bone metastases Status: Acute (4) CKD (chronic kidney disease), stage III Status: Chronic (5) Hypokalemia Status: Resolved (6) DVT (deep venous thrombosis) Status: Acute Qualifiers: DVT location: lower extremity Affected thrombotic vein of extremity: other lower extremity vein Chronicity: acute Laterality: right Qualified Code(s) : I82.491 - Acute embolism and thrombosis of other specified deep vein of right lower extremity (7) Pulmonary embolism Status: Acute Qualifiers: Pulmonary embolism type: other Chronicity: acute Acute cor pulmonale presence: without acute cor pulmonale Qualified Code(s): I26.99 - Other pulmonary embolism without acute cor pulmonale (8) Mass of hilum Status: Acute (9) Cerebellar stroke Status: Acute (10) Constipation Status: Acute Qualifiers: Constipation type: drug induced constipation Qualified Code(s): K59.03 - Drug induced constipation (11) Acute respiratory failure with hypoxia Status: Acute Hospital course: Mr. Park is a 71 year old male - Time Spent with Patient Total time spent providing and/or coordinating discharge services: Date of admission: 07/16/17 18:52 Primary care physician: Peng Cardenas DO Consults: 07/17/17 11:38 Consult to Pulmonology [CONS] Routine Consulting Provider: [facility] Reason for Consult: Metastatic disease, new right hilum mass encasing pulmonary arteries, possible primary source. Requires bronchoscopy. Call Completed: Yes - Constitutional Vitals: Temp Pulse Resp BP Pulse Ox 98.5 F 81 16 143/83 94 07/18/17 11:54 07/18/17 11:54 07/18/17 11:54 07/18/17 11:54 07/18/17 15:17 - Attending Attestation I examined this patient and my medical decision-making was reviewed with the Resident Physician. I agree with the documented findings, disposition and treatment plan as described except to the extent set forth below. 71 M with new diagnosis of acute hypoxic resp failure secondary to possible lung CA with bone mets (suspect brain, bone and spine), embolic CVA, left lower extremity DVT, acute PE. He is seen and examined at the bedside with family members. He has no new complaints. Trans Esophageal echocardiogram done 07/17 showed aneurysmal interatrial septum with positive bubble study for right left shunt and plaquing of the descending thoracic aorta, no intracardiac thrombus identified. Physical examination is remarkable for point spine tenderness along the lumbar region, no paraspinal swelling. Chest is clear to auscultation bilaterally. No neuro deficits Labs and imaging reviewed and noted. Plan is to discharge home on lovenox, for Lung biopsy by pulm Monday 07/24, follow up with Onc Qualified for home O2, educated on need to stop lovenox nght prior to biopsy Rest of details as in the resident physicians documentation.
--- NOTE | 2017-07-18 10:39 | Physician Discharge Referral ---
Home Health/Hosp Referral Info Transfer to: Home Health Attending Provider: Dr. Luna Provider in Charge Post Discharge: PCP - Diagnosis (1) Mass of hilum Priority: Primary Status: Acute (2) Bone metastases Priority: Primary Status: Acute (3) Pulmonary embolism Priority: Primary Status: Acute (4) DVT (deep venous thrombosis) Priority: Primary Status: Acute (5) Cerebellar stroke Priority: Primary Status: Acute (6) Acute respiratory failure with hypoxia Priority: Primary Status: Acute (7) Elevated troponin Priority: Secondary Status: Acute (8) Hypertension Priority: Secondary Status: Chronic (9) CKD (chronic kidney disease), stage III Priority: Secondary Status: Chronic (10) Hypokalemia Priority: Secondary Status: Resolved (11) Constipation Priority: Secondary Status: Acute - Respiratory Orders Oxygen / L per min (2L continuous O2 via NC) Smoking Cessation: Smoking cessation has been advised. For more information, call the [place] Tobacco Quit Line at 9-378-DJXF-NOW. - Diet/Nutrition Diet/Nutrition Orders: Regular - Activity Activity Orders: Ambulate (with walker), Walker - Transfer Medications Prescriptions: Enoxaparin [Lovenox *PHARMACY WT BASED*] 110 mg SQ Q12H #60 syringe Sennosides/Docusate Sodium [Senna Plus] 2 each PO BID PRN #60 tablet PRN Reason: Constipation Home Medications: Aspirin [Adult Low Dose Aspirin EC] 81 mg PO DAILY 11/20/14 [History] Atorvastatin [Lipitor] 40 mg PO HS 11/20/14 [History] Losartan/Hydrochlorothiazide [Hyzaar 100-25 Tablet] 1 tab PO DAILY 11/20/14 [ History] HYDROcodone/Acet 5/325 mg [[place] 5-325 mg] 1 tab PO BID PRN 07/15/17 [History] Acetaminophen [Tylenol] 650 mg PO Q6HR PRN tablet 07/18/17 [Rx] Enoxaparin [Lovenox *PHARMACY WT BASED*] 110 mg SQ Q12H #60 syringe 07/18/17 [Rx ] Sennosides/Docusate Sodium [Senna Plus] 2 each PO BID PRN #60 tablet 07/18/17 [ Rx] Allergies/Adverse Reactions: 3 Allergy/AdvReac Type Severity Reaction Status Date / Time No Known Allergies Allergy Verified 07/15/17 09:11 Certification: Further, I certify that my clinical findings support that this patient is homebound (i.e. absences from home require considerable and taxing effort and are for medical reasons or adventist services or infrequently or short duration when for other reasons) because: Homebound Reason: Severity of cardiac or pulmonary status limits activity tolerance Attestation: My signature below is to certify that this patient is under my care and that I, or nurse practitioner, or a physician's therapy administrative assistant working with me, has a face-to -face encounter with this patient.
[2017-07-18] MEDS: Sennosides/Docusate Sodium TABLET PO SCH ×2 (12:54→20:33)
--- NOTE | 2017-07-18 14:44 | Neurology Progress Note ---
Date of Encounter: 07/18/17 Time of Encounter: 12:00 Assessment and Plan (1) CVA (cerebral vascular accident) Current Visit: Yes Status: Acute 71 year old man with PMH significant for HTN, DM, obesity who developed acute onset of binocular diplopia lasting few hours in duration as well as balance difficulty, with rapid resolution. MRI of brain showed presence of acute infarct involving the cerebellar nodule at the vermis which likely caused the double vision and balance difficulty. There is also small punctate acute ischemic infarct at the right frontal subcortical region, concerning for embolic etiology of stroke. LAINE completed and showed presence of intraatrial septum aneurysm and combined with the presence of PFO this could be associated with increased risk of CVA. Patient is to be started on anticoagulation therapy due to PE and DVT. agree with aspirin 81mg daily. Continue statin therapy. Will sign off at this time. please call if any questions Qualifiers: CVA mechanism: embolism Precerebral and cerebral artery: unspecified precerebral artery Qualified Code(s): I63.10 - Cerebral infarction due to embolism of unspecified precerebral artery Subjective Principal diagnosis: CVA, diplopia Interval history: Patient seen and examined. He feels better and denies any double vision today. His LAINE showed presence of intraatrial septum aneurysm which when combined with PFO could be associated with increased risk of recurrent cerebral infarct. He is to be anticoagulated due to presence of PE and DVT. He is currently asymptomatic Objective - Constitutional Vitals: Temp Pulse Resp BP Pulse Ox 98.5 F 81 16 143/83 93 07/18/17 11:54 07/18/17 11:54 07/18/17 11:54 07/18/17 11:54 07/18/17 11:54 - Neurological Exam Motor Examination: Present: full strength in all major muscle groups Motor examination - left side: 5/5: deltoids, biceps, triceps, wrist flexion, wrist extension, hip flexors, social services counselor, quadriceps, tibialis Anterior, toe extension (EHL), plantarflexion Mental Status Examination: Present: awake, alert, oriented to person, oriented to place, oriented to time, follows commands appropriately, answers questions appropriately, no agnosia, no aphasia, no aproxia Cranial nerve examination: Present: PERRL, EOMI, visual dozier intact, corneal reflexes brisk symmetrically, sensory to face intact, mastication intact, no facial asymmetry is present, no dysarthria, hearing is intact symmetrically, soft palate elevates bilaterally upon phonation, gag reflex intact, flexes SCM and trapezius muscles symmetrically with full power, tongue protrudes midline, no atrophy or facial fasiculations present Cerebellar examination: Present: no dysmetria, performs finger to nose and heel to viera symmetrically without ataxia, no gait ataxia (able to ambulate independently ), no difficulty with rapid alternating movements - VTE Documentation of Mechanical Device: Intermittent pneumatic compression device Results - Laboratory Findings CBC and BMP: 07/18/17 04:09 07/18/17 04:09 Abnormal lab findings: Abnormal lab results RBC 3.64 M/mcL (4.19-5.50) L 07/18/17 04:09 Hgb 10.4 g/dL (12.9-16.9) L 07/18/17 04:09 Hct 32.0 % (37.5-50.1) L 07/18/17 04:09 Monocytes # 1.4 K/mcL (0.0-1.3) H 07/18/17 04:09 PT 14.1 Seconds (9.4-12.1) H 07/16/17 19:12 APTT 90.1 Seconds (26.0-36.0) H 07/17/17 12:57 Heparin Anti-Xa, Unfract 0.97 IU/mL (0.30-0.70) H 07/17/17 03:32 Carbon Dioxide 31 mEq/L (23-29) H 07/18/17 04:09 Est GFR (Non-Af Amer) 58 (> 60) L 07/18/17 04:09 POC Glucose 107 mg/dL (70-99) H 07/15/17 07:36 Troponin I 0.23 ng/mL (< 0.04) H* 07/15/17 21:33 Urine Protein 30 mg/dL (Neg-Trace) H 07/15/17 13:45 Urine Blood Small (Negative) H 07/15/17 13:45 Consult Discharge Plan - Plan Referrals: Pneg Cardenas DO [Primary Care Provider] - 07/24/17 11:30 am Prescriptions: Enoxaparin [Lovenox *PHARMACY WT BASED*] 110 mg SQ Q12H #60 syringe Enoxaparin [Lovenox *PHARMACY WT BASED*] 110 mg SQ Q12H #12 syringe Sennosides/Docusate Sodium [Senna Plus] 2 each PO BID PRN #60 tablet PRN Reason: Constipation
[2017-07-18 14:53] LABS: Lactate Dehydrogenase 348 Units/L (140-271)
[2017-07-18] MEDS: *HR* HYDROcodone/Acet 5/325 mg TABLET PO PRN (17:59)
[2017-07-18] MEDS ORDERED: *HR* Enoxaparin 120 MG/0.8 ML SYRINGE SQ SCH (18:00)
[2017-07-19 04:33] LABS: Hematocrit 31.5 % (37.5-50.1); Hemoglobin 10.2 g/dL (12.9-16.9); Mean Corpuscular HGB Conc 32.4 g/dL (31.6-35.5); Mean Corpuscular Hemoglobin 28.5 pg (28.0-33.3); Mean Platelet Volume 10.6 fL (9.4-12.4); Platelet Count 369 K/mcL (140-400); Red Blood Count 3.58 M/mcL (4.19-5.50); Red Cell Distribution Width 12.7 % (11.5-14.5)
[2017-07-19 04:41] LABS: INR 1.3; Prothrombin Time 13.8 Seconds (9.4-12.1)
[2017-07-19 05:02] LABS: BUN/Creatinine Ratio 17 (6-26); Blood Urea Nitrogen 17 mg/dL (8-23); Calcium 9.2 mg/dL (8.6-10.3); Carbon Dioxide 28 mEq/L (23-29); Chloride 101 mEq/L (98-107); Glucose 95 mg/dL (70-105); Osmolality,Calculated 287 (280-300); Potassium 3.7 mEq/L (3.5-5.1); Sodium 138 mEq/L (136-145); eGFR For African Americans > 60 (> 60); eGFR For Non-African Americans > 60 (> 60)
[2017-07-19] MEDS: Acetaminophen 325 MG TABLET PO PRN ×3 (08:15→23:11)
[2017-07-19] MEDS: Sennosides/Docusate Sodium TABLET PO SCH ×3 (08:16→23:08)
--- NOTE | 2017-07-19 08:26 | Internal Med Progress Note ---
<Nakul Montaño - Last Filed: 07/19/17 15:21> Date of Encounter: 07/19/17 Time of Encounter: 08:00 - Assessment and plan (1) Mass of hilum Current Visit: Yes Status: Acute Assessment and plan: Lung CA with bone mets (suspect brain, bone and spine) Dr. Gastelum, performed endoscopy ultrasound-guided bronchoscopic biopsy of right central lung mass, non-small cell lung carcinoma. Patient is aware. Oncology recommends radiation therapy outpatient. Continue with Lovenox at 1600 Follow up outpatient oncology management. likely discharge tomorrow. (2) Cerebellar stroke Current Visit: Yes Status: Acute Assessment and plan: Patient developed double vision at 3 AM on 07/14/17. MRI Brain shows acute infarct on cerebellar nodules at vermis. Likely cause of visual disturbances. No ischemic EKG changes Carotid duplex with 40-59% R ICA occlusion, 60-79% L ICA occlusion Echo demonsrates aneurysmal interatrial septum with positive bubble study for right to left shunting. Intracardiac throbus not identified. Cardiology has seen patient and has no further acute cardiac recommendations. BL LE dopplers demonstrates left LE acute DVT in gastronemius. difficult to differentiate hypercoagulable state vs cardioembolic origin. Continue Lovenox SQ, The presence of two small ischemic infarct would not be considered contraindication for anticoagulation. (3) Elevated troponin Current Visit: Yes Status: Acute Assessment and plan: Troponins 0.08, 0.12, 0.17, 0.23 in setting of CVA and CKD. Also in setting of possible metastatic cancer--lung and bone masses. Suspect demand ischemia, nondiagnostic for ACS. Reports occasional left sided sharp chest pain with no alleviating or exacerbating factors. Standard stress test 2016 negative for ischemia. TTE LVEF 60-65%. Mild cLVH. Mild LVDD, normal RV structure and function. Mild IN , mild TR, mild phtn. There is a PFO by agitated saline contrast. No ischemic EKG changes. No inpatient ischemic evaluation is warranted at this time in setting of CVA. (4) Hypertension Current Visit: Yes Status: Chronic Assessment and plan: Blood pressure well controlled and stable. (5) Bone metastases Current Visit: Yes Status: Acute Assessment and plan: Patient has history of weight loss for 40 Lb over the last 2 months, loss of balance, PET scan shows spine and right iliac increased uptake. Primary source likely right hilar mass. Continue pain control Plan for outpatient follow up. (6) CKD (chronic kidney disease), stage III Current Visit: Yes Status: Chronic Assessment and plan: CKD stages 3 has been stable, avoid nephrotoxins (7) Hypokalemia Current Visit: Yes Status: Resolved Assessment and plan: resolved and stable. (8) DVT (deep venous thrombosis) Current Visit: Yes Status: Acute Assessment and plan: Doppler U/S revealed acute deep venous thrombosis is present in the left gastrocnemius vein. Continue Lovenox in the setting of lung metastatic cancer. (9) Pulmonary embolism Current Visit: Yes Status: Acute Assessment and plan: CT chest with contrasts confirms acute PE best seen in left lower lobe pumonary arteries, suspected in other pulmonary arteries as well. Continue Lovenox in the setting of lung metastatic cancer. (10) Constipation Current Visit: Yes Status: Acute Assessment and plan: Patient is on opiods for metastatic bone pain Senna plus prn (11) Acute respiratory failure with hypoxia Current Visit: Yes Status: Acute - Time Spent With Patient Total time spent is greater than 50% in coordination of care (as documented) at patient's floor/unit and/or counseling patient: Greater than 35 minutes - Subjective Interval history: Patient's visual disturbances have improved. Denies CP, SOB, cough. Overall continues to be asymptomatic. Voiding without difficulty. Able to ambulate without difficulty. No acute complaints. - Constitutional Vitals: Temp Pulse Resp BP Pulse Ox 98.9 F 95 18 137/73 93 07/19/17 07:44 07/19/17 07:44 07/19/17 07:49 07/19/17 07:44 07/19/17 07:49 General appearance: Present: cooperative, A&O X 3, pleasant, no acute distress, obese, answers questions appropriately - Head Head exam: Present: atraumatic, normocephalic - Eye Eye exam: Present: normal appearance, conjuntiva pink, sclera anicteric - Neck Neck exam general surgery: Present: supple, trachea midline. Absent: lymphadenopathy - Respiratory Respiratory exam: Present: CTAB. Absent: accessory muscle use, rales, rhonchi, wheezes - Cardiovascular Cardiovascular exam: Present: RRR, +S1, +S2. Absent: diastolic murmur, gallop, rubs, systolic murmur - GI/Abdominal GI/Abdominal exam: Present: normal bowel sounds, soft, no peritoneal signs. Absent: distended, tenderness - Extremities Exam Extremities exam: Present: warm, radial pulses palpable and symmetrical. Absent : calf tenderness, cyanotic, pedal edema - Neurological Exam Neurological exam: Present: CN II-XII intact, oriented X3, no focal deficits. Absent: pronater drift, facial droop, speech deficit - Skin Skin exam: Present: dry, intact Internal Medicine: Result - Labs CBC & Chem 7: 07/19/17 03:47 07/19/17 03:47 Labs: Short CBC 07/19/17 Range/Units 03:47 WBC 10.2 (4.3-11.1) K/mcL Hgb 10.2 L (12.9-16.9) g/dL Hct 31.5 L (37.5-50.1) % Plt Count 369 (140-400) K/mcL BMP 07/18/17 07/19/17 04:09 03:47 Sodium 140 138 Potassium 3.6 3.7 Chloride 102 101 Carbon Dioxide 31 H 28 BUN 20 17 Creatinine 1.23 1.01 Glucose 105 95 Calcium 9.0 9.2 - ABG Interpretation ABG results: PT/INR, D-dimer PT 13.8 Seconds (9.4-12.1) H 07/19/17 03:47 - Impressions Impressions Cervical Spine MRI 07/18/17 14:25 IMPRESSION: Motion degraded study. Enhancing lesions involving the C3 and C5 vertebral bodies are consistent with osseous metastasis. No gross ventral epidural extension of tumor. No acute pathologic fracture. Multilevel degenerative changes of the cervical spine. There is severe spinal canal stenosis at C4-C5 and moderate spinal canal stenosis at C5-C6. There is mild spinal canal stenosis at C3-C4 and C6-C7. Multilevel neural foraminal narrowing, including severe bilateral neural foraminal stenosis at C3-C4, C4-C5, and C6-C7. D/ / 07/18/2017 18:21:39 Nisha Friend MD / danitza Interpreting Provider: Nisha Friend MD Lumbar Spine MRI 07/18/17 14:25 IMPRESSION: Enhancing, STIR hyperintense lesions involving L2, L3, L5, and left aspect of the sacrum, are consistent with osseous metastases. Ventral epidural extension of tumor at the L2 level contributes to mild spinal canal stenosis, effacement of the left lateral recess, and compression of the left L2 nerve root. Correlate with clinical symptoms of left L2 radiculopathy. There is a pathologic L2 compression fracture with mild, less than 20%, loss of vertebral body height. Multilevel degenerative changes of the lumbar spine with multilevel neural foraminal narrowing, including moderate left neural foraminal stenosis at L5-S1. The findings were sent to the Radiology Results Communication Center at 6:41 pm on 07/18/2017to be communicated to a licensed caregiver. D/ / 07/18/2017 18:48:20 Nisha Friend MD / pablito Interpreting Provider: Nisha Friend MD Thoracic Spine MRI 07/18/17 14:25 IMPRESSION: Multilevel STIR hyperintense, enhancing lesions throughout the thoracic spine are consistent with osseous metastases. There is no gross epidural extension of tumor. No acute pathologic fracture. Multilevel degenerative changes of the thoracic spine without spinal canal stenosis. D/ / 07/18/2017 18:37:24 Nisha Friend MD / pablito Interpreting Provider: Nisha Friend MD - VTE Documentation of Mechanical Device: Intermittent pneumatic compression device Consult Discharge Plan - Plan Referrals: Peng Cardenas DO [Primary Care Provider] - 07/24/17 11:30 am Prescriptions: Enoxaparin [Lovenox *PHARMACY WT BASED*] 110 mg SQ Q12H #60 syringe Enoxaparin [Lovenox *PHARMACY WT BASED*] 110 mg SQ Q12H #12 syringe Sennosides/Docusate Sodium [Senna Plus] 2 each PO BID PRN #60 tablet PRN Reason: Constipation <Florentin Luna - Last Filed: 07/19/17 16:51> Date of Encounter: 07/19/17 - Assessment and plan (1) Elevated troponin Current Visit: Yes Status: Acute (2) Hypertension Current Visit: Yes Status: Chronic Qualifiers: Hypertension type: essential hypertension Qualified Code(s): I10 - Essential (primary) hypertension (3) Bone metastases Current Visit: Yes Status: Acute (4) CKD (chronic kidney disease), stage III Current Visit: Yes Status: Chronic (5) Hypokalemia Current Visit: Yes Status: Resolved (6) DVT (deep venous thrombosis) Current Visit: Yes Status: Acute Qualifiers: DVT location: lower extremity Affected thrombotic vein of extremity: other lower extremity vein Chronicity: acute Laterality: right Qualified Code(s) : I82.491 - Acute embolism and thrombosis of other specified deep vein of right lower extremity (7) Pulmonary embolism Current Visit: Yes Status: Acute Qualifiers: Pulmonary embolism type: other Chronicity: acute Acute cor pulmonale presence: without acute cor pulmonale Qualified Code(s): I26.99 - Other pulmonary embolism without acute cor pulmonale (8) Mass of hilum Current Visit: Yes Status: Acute (9) Cerebellar stroke Current Visit: Yes Status: Acute (10) Constipation Current Visit: Yes Status: Acute Qualifiers: Constipation type: drug induced constipation Qualified Code(s): K59.03 - Drug induced constipation (11) Acute respiratory failure with hypoxia Current Visit: Yes Status: Acute - Time Spent With Patient Total time spent is greater than 50% in coordination of care (as documented) at patient's floor/unit and/or counseling patient: - Constitutional Vitals: Temp Pulse Resp BP Pulse Ox 98.5 F 87 18 111/65 93 07/19/17 15:50 07/19/17 15:50 07/19/17 16:24 07/19/17 15:50 07/19/17 16:24 Internal Medicine: Result - Labs CBC & Chem 7: 07/19/17 03:47 07/19/17 03:47 Labs: Short CBC 07/19/17 Range/Units 03:47 WBC 10.2 (4.3-11.1) K/mcL Hgb 10.2 L (12.9-16.9) g/dL Hct 31.5 L (37.5-50.1) % Plt Count 369 (140-400) K/mcL BMP 07/19/17 03:47 Sodium 138 Potassium 3.7 Chloride 101 Carbon Dioxide 28 BUN 17 Creatinine 1.01 Glucose 95 Calcium 9.2 - ABG Interpretation ABG results: PT/INR, D-dimer PT 13.8 Seconds (9.4-12.1) H 07/19/17 03:47 - Impressions Impressions Cervical Spine MRI 07/18/17 14:25 IMPRESSION: Motion degraded study. Enhancing lesions involving the C3 and C5 vertebral bodies are consistent with osseous metastasis. No gross ventral epidural extension of tumor. No acute pathologic fracture. Multilevel degenerative changes of the cervical spine. There is severe spinal canal stenosis at C4-C5 and moderate spinal canal stenosis at C5-C6. There is mild spinal canal stenosis at C3-C4 and C6-C7. Multilevel neural foraminal narrowing, including severe bilateral neural foraminal stenosis at C3-C4, C4-C5, and C6-C7. D/ : / 07/18/2017 18:21:39 Nisha Friend MD / danitza Interpreting Provider: Nisha Friend MD Lumbar Spine MRI 07/18/17 14:25 IMPRESSION: Enhancing, STIR hyperintense lesions involving L2, L3, L5, and left aspect of the sacrum, are consistent with osseous metastases. Ventral epidural extension of tumor at the L2 level contributes to mild spinal canal stenosis, effacement of the left lateral recess, and compression of the left L2 nerve root. Correlate with clinical symptoms of left L2 radiculopathy. There is a pathologic L2 compression fracture with mild, less than 20%, loss of vertebral body height. Multilevel degenerative changes of the lumbar spine with multilevel neural foraminal narrowing, including moderate left neural foraminal stenosis at L5-S1. The findings were sent to the Radiology Results Communication Center at 6:41 pm on 07/18/2017to be communicated to a licensed caregiver. D/ : / 07/18/2017 18:48:20 Nisha Friend MD / pablito Interpreting Provider: Nisha Friend MD Thoracic Spine MRI 07/18/17 14:25 IMPRESSION: Multilevel STIR hyperintense, enhancing lesions throughout the thoracic spine are consistent with osseous metastases. There is no gross epidural extension of tumor. No acute pathologic fracture. Multilevel degenerative changes of the thoracic spine without spinal canal stenosis. D/ / 07/18/2017 18:37:24 Nisha Friend MD / pablito Interpreting Provider: Nisha Friend MD - Attending Attestation I examined this patient and my medical decision-making was reviewed with the Resident Physician on 5/3 with family at the bedside. I agree with the documented findings, disposition and treatment plan as described except to the extent set forth below. Plan is as documented, s/p biopsy this a.m. Onc robson noted,will discharge on lovenox if stable by a.m Rest of details as in the resident physicians documentation.
--- NOTE | 2017-07-19 08:37 | Anesthesia Evaluation PreOp ---
Date of Encounter: 07/19/17 Time of Encounter: 08:35 - Past History Planned Operation: EBUS Cardiac History: HTN, Hyperlipidemia, Other (elevated troponins) Pulmonary History: Former smoker, YUE Dx, Other (H/O DVT with PE) REPLENISHMENT SPECIALIST History: CVA (cerebellar CVA), Other (L2 compression fracture) Other Medical History: Renal (CKD stage 3), Diabetes Type II (diet controlled), Other (CA with mets) Anesthesia History: No Prior Anesthetic Complications, Past Anesthesia Alcohol Use: none Drug use: none Medications and Allergies Aspirin [Adult Low Dose Aspirin EC] 81 mg PO DAILY 11/20/14 [History] Atorvastatin [Lipitor] 40 mg PO HS 11/20/14 [History] Losartan/Hydrochlorothiazide [Hyzaar 100-25 Tablet] 1 tab PO DAILY 11/20/14 [ History] HYDROcodone/Acet 5/325 mg [[place] 5-325 mg] 1 tab PO BID PRN 07/15/17 [History] Acetaminophen [Tylenol] 650 mg PO Q6HR PRN tablet 07/18/17 [Rx] Enoxaparin [Lovenox *PHARMACY WT BASED*] 110 mg SQ Q12H #12 syringe 07/18/17 [Rx ] Enoxaparin [Lovenox *PHARMACY WT BASED*] 110 mg SQ Q12H #60 syringe 07/18/17 [Rx ] Sennosides/Docusate Sodium [Senna Plus] 2 each PO BID PRN #60 tablet 07/18/17 [ Rx] 3 Allergy/AdvReac Type Severity Reaction Status Date / Time No Known Allergies Allergy Verified 07/15/17 09:11 - Meds/Allergy Pre-op Review Medications Reviewed: Yes Allergies Reviewed: Yes Beta Blockers on Current Med List: No Anesthesia Results - Labs 07/19/17 03:47 07/19/17 03:47 Laboratory Tests 07/17/17 07/19/17 12:57 03:47 PT 13.8 H INR 1.3 APTT 90.1 H - Imaging EKG: report reviewed (07/15/2017 SINUS RHYTHM BORDERLINE LEFT AXIS DEVIATION INCOMPLETE RIGHT BUNDLE BRANCH BLOCK) Additional studies: 07/17/2017 LAINE Impressions: Aneurysmal interatrial septum with positive bubble study for right to left shunting. Grade I plaquing of the descending thoracic aorta. Intracardiac thrombus not identified on this study. 07/16/2017 Echo Impressions: LVEF 60-65%. Mild concentric left ventricular hypertrophy. Mild left ventricular diastolic dysfunction. Normal right ventricular structure and function. Mild pulmonic regurgitation. Mild tricuspid regurgitation. Mild pulmonary hypertension. There is a PFO by agitated saline contrast, 09/27/2015 Stress Impressions: Stress ECG was negative for ischemia. Exercise capacity was fair. Normal hemodynamic response to exercise. No arrhythmias noted with stress. Patient described a transient episode of chest heaviness. Recommend clinical correlation. 07/18/2017 MRI Lumbar Spine IMPRESSION: Enhancing, STIR hyperintense lesions involving L2, L3, L5, and left aspect of the sacrum, are consistent with osseous metastases. Ventral epidural extension of tumor at the L2 level contributes to mild spinal canal stenosis, effacement of the left lateral recess, and compression of the left L2 nerve root. Correlate with clinical symptoms of left L2 radiculopathy. There is a pathologic L2 compression fracture with mild, less than 20%, loss of vertebral body height. Multilevel degenerative changes of the lumbar spine with multilevel neural foraminal narrowing, including moderate left neural foraminal stenosis at L5-S1. Anesthesia Exam Vital Signs/O2 Sat/Glucose, Most Recent Temp Pulse Resp BP Pulse Ox 98.9 F 95 18 137/73 93 07/19/17 07:44 07/19/17 07:44 07/19/17 07:49 07/19/17 07:44 07/19/17 07:49 Blood Glucose* 107 Height: 5'11''/1.8m Weight: 252 lbs/114.7 kg - HEENT Pupil (Motor): EOMI Mallampati: III Teeth: Normal Denture Type: Upper: Complete, Lower: Partial Oral Opening: Greater than 3 - REPLENISHMENT SPECIALIST LOC: Oriented REPLENISHMENT SPECIALIST Motor: Normal RUE, Normal LUE, Normal RLE, Normal LLE, Normal Face REPLENISHMENT SPECIALIST Sensory: Normal: RUE, LUE, RLE, LLE, Face - Cardiac Rhythm: Regular Murmur: None - Pulmonary Breath Sounds: bilateral Clear Respiratory Effort: Symmetrical Anesthesia Assess/Plan ASA Score: 4 (Patient understands that he is at increased risk for perioperative complications including myocardial infarct, arrhythmias, CVA, post op vent support/ICU stay, and . Patient wishes to proceed.) Modified P[place] Scale for Level of Consciousness: Cooperative, oriented, and tranquil Anesthetic Plan: General Monitoring Plan: Standard Monitors Recovery Plan: PACU
[2017-07-19] MEDS ORDERED: *HR* Propofol 200 MG/20 ML VIAL IVP ONE ×2 (10:09→15:34)
[2017-07-19] MEDS ORDERED: Dexamethasone 4 MG/ML VIAL ONE ×3 (10:09→15:38)
[2017-07-19] MEDS ORDERED: *HR* Rocuronium Bromide 50 MG/5 ML VIAL ONE (10:09)
[2017-07-19] MEDS ORDERED: *HR* FentaNYL (PF) 100 MCG/2 ML VIAL ONE ×2 (10:09→15:34)
[2017-07-19] MEDS ORDERED: Lidocaine -MPF 2% 2 ML VIAL ONE ×2 (10:09→15:34)
[2017-07-19] MEDS ORDERED: Ondansetron 4 MG/2 ML VIAL ONE ×2 (10:09→15:34)
[2017-07-19] MEDS ORDERED: *HR* Succinylcholine 200 MG/10 ML VIAL IVP ONE ×2 (10:09→15:35)
[2017-07-19] MEDS ORDERED: *HR* Midazolam HCl 2 MG/2 ML VIAL ONE (10:09)
[2017-07-19] MEDS ORDERED: Lidocaine -MPF 4% 5 ML AMPUL ONE ×2 (10:09→15:39)
[2017-07-19] MEDS ORDERED: Ondansetron 4 MG/2 ML VIAL IVP ONE (10:39)
[2017-07-19] MEDS ORDERED: Albuterol 2.5 MG/3 ML NEBULIZER IH ONE (10:39)
[2017-07-19] MEDS ORDERED: MORPHINE SUL Oral CONC 10 MG/0.5 ML ORAL.SYG SL PRN ×2 (10:39→15:30)
--- NOTE | 2017-07-19 11:35 | Anesthesia Evaluation Post Op ---
Date of Encounter: 07/19/17 Time of Encounter: 11:34 - Vital Signs Vital Signs: Vital Signs/O2 Sat, Most Current Temp Pulse Resp BP Pulse Ox 98.3 F 85 22 119/71 94 07/19/17 11:11 07/19/17 11:31 07/19/17 11:31 07/19/17 11:31 07/19/17 11:31 - Lungs Lungs: Clear Ascult./Percussion - Airway Airway: Non-obstructed - Cardiovascular Regular Rate - Mental Status Mental Status: Alert & Oriented, Answers Appropriately - Pain Pain Scale: 0 Pain Scale used: Numeric (1 - 10) - Nausea Vomiting Nausea Vomiting: Not Present - Hydration Hydration: NPO, Has not voided - Discharge PostOp Status: Transfer Patient to floor
--- NOTE | 2017-07-19 12:49 | Oncology Inp Progress Note ---
<Dede Mccoy L - Last Filed: 07/19/17 15:18> Date of Encounter: 07/19/17 Time of Encounter: 12:00 (1) Pulmonary embolism Current Visit: Yes Status: Acute Assessment and plan: PE in left lower lobe pulmonary arteries, however suspected in other pulmonary arteries as well as well as DVT in the left gastroc Hypercoagulable state in presence of malignancy. Transitioned from heparin gtt to lovenox prior to Bronch. Recommend transition to Xarelto for discharge now that biopsy is completed. Kidney function normal. Qualifiers: Pulmonary embolism type: other Chronicity: acute Acute cor pulmonale presence: without acute cor pulmonale Qualified Code(s): I26.99 - Other pulmonary embolism without acute cor pulmonale (2) Mass of hilum Current Visit: Yes Status: Acute Assessment and plan: Right hilar mass. LDH 348 S/P Bronchoscopy today with biopsy of right hilar mass- JASMINA suspicious for non small cell lung cancer with final pathology pending. MRI C/T/L spine reveals enhancing lesions throughout thoracic spine, ventral epidural extension of tumor at the L2 level contributes to mild spinal canal stenosis, effacement of the left lateral recess, and compression of the left L2 nerve root along wit associated pathologic L2 compression fracture, enhancing lesions involving the C3 and C5 vertebral bodies, along with multiple areas of multilevel degenerative with areas of severe to mild spinal canal stenosis, neural foraminal narrowing and severe bilateral neural foraminal stenosis. Discussed above results with patient at bedside today along with plan to set up consultation with radiation oncology o plan for simulation and treatment to painful bony metastases and lumbar spine. He will plan to see Dr. Fox with radiation oncology on 07/24, he has consultation with Dr. Mccray with medical oncology on 07/23. (3) Cerebellar stroke Current Visit: Yes Status: Acute Assessment and plan: MRI of the brain shows acute infarct in the cerebellar nodule at the vermis. LAINE showed evidence of intraatrial septum aneurysm along with the findings of PFO. Patient's diplopia has appears to hae mainly resolved although he does report one episode of diplopia yesterday. Balance remains an issue at times (4) Weight loss, unintentional Current Visit: Yes Status: Acute Assessment and plan: Reports 50 pound unintentional weight loss over past 6 weeks. Order Entry Specialist following inpatient, continue with outpatient monitoring. Reports/nausea, retching and altered taste. Zofran PRN, please continue at discharge. Oncology: Subj Interval history: Mr. Park is resting in bed. He denies pain. Family at bedside. Recently returned from bronchoscopy. - Constitutional Vitals: Vital Signs Temp Pulse Resp BP Pulse Ox 07/19/17 11:56 98.4 F 84 20 129/72 95 07/19/17 11:48 18 95 07/19/17 11:41 98.3 F 81 22 117/70 95 07/19/17 11:31 85 22 119/71 94 07/19/17 11:21 90 24 115/66 95 07/19/17 11:11 98.3 F 72 24 115/72 95 07/19/17 09:51 82 16 131/79 93 07/19/17 07:49 18 93 07/19/17 07:44 98.9 F 95 18 137/73 93 07/19/17 04:37 98 18 145/77 94 07/19/17 04:28 18 92 07/18/17 23:37 16 93 07/18/17 20:41 98.3 F 90 17 136/86 90 07/18/17 20:26 16 91 07/18/17 15:17 94 Intake and Output 07/18/17 07/19/17 07/19/17 23:59 07:59 15:59 Output Total 0 / 0 1225 / 1225 0 / 0 Balance 0 / 0 -1225 / -1225 0 / 0 Output: Urine 0 / 0 1225 / 1225 0 / 0 Other: Weight 114.7 kg Blood Glucose* 109 Patient Weight 07/19/17 23:59 Weight 114.7 kg General appearance: cooperative, no acute distress, no febrile - Respiratory Respiratory exam: Present: decreased breath sounds, CTAB. Absent: respiratory distress - GI/Abdominal GI/Abdominal exam: Present: normal bowel sounds, soft. Absent: tenderness - Extremities Exam Extremities exam: Present: normal inspection. Absent: calf tenderness - Neurological Exam Neurological exam: Present: alert, oriented X3, no focal deficits, strengths equal and symetr throughout - Psychiatric Psychiatric exam: Present: normal affect, normal mood - Skin Skin exam: Present: dry, intact, normal color, warm Oncology: Obj Data - Labs CBC & Chem 7: 07/19/17 03:47 07/19/17 03:47 Labs: Laboratory Results - last 24 hr 05/02/18 05/03/18 05/03/18 04:09 03:47 03:47 WBC 10.2 RBC 3.58 L Hgb 10.2 L Hct 31.5 L MCV 88.0 MCH 28.5 MCHC 32.4 RDW 12.7 Plt Count 369 MPV 10.6 PT 13.8 H INR 1.3 Sodium 140 Potassium 3.6 Chloride 102 Carbon Dioxide 31 H BUN 20 Creatinine 1.23 Est GFR ( Amer) > 60 Est GFR (Non-Af Amer) 58 L BUN/Creatinine Ratio 16 Glucose 105 Calculated Osmolality 293 Calcium 9.0 Lactate Dehydrogenase 348 H 07/19/17 03:47 WBC RBC Hgb Hct MCV MCH MCHC RDW Plt Count MPV PT INR Sodium 138 Potassium 3.7 Chloride 101 Carbon Dioxide 28 BUN 17 Creatinine 1.01 Est GFR ( Amer) > 60 Est GFR (Non-Af Amer) > 60 BUN/Creatinine Ratio 17 Glucose 95 Calculated Osmolality 287 Calcium 9.2 Lactate Dehydrogenase - Impressions Impressions Cervical Spine MRI 07/18/17 14:25 IMPRESSION: Motion degraded study. Enhancing lesions involving the C3 and C5 vertebral bodies are consistent with osseous metastasis. No gross ventral epidural extension of tumor. No acute pathologic fracture. Multilevel degenerative changes of the cervical spine. There is severe spinal canal stenosis at C4-C5 and moderate spinal canal stenosis at C5-C6. There is mild spinal canal stenosis at C3-C4 and C6-C7. Multilevel neural foraminal narrowing, including severe bilateral neural foraminal stenosis at C3-C4, C4-C5, and C6-C7. D/ / 07/18/2017 18:21:39 Nisha Friend MD / [email or web address] Interpreting Provider: Nisha Friend MD Lumbar Spine MRI 07/18/17 14:25 IMPRESSION: Enhancing, STIR hyperintense lesions involving L2, L3, L5, and left aspect of the sacrum, are consistent with osseous metastases. Ventral epidural extension of tumor at the L2 level contributes to mild spinal canal stenosis, effacement of the left lateral recess, and compression of the left L2 nerve root. Correlate with clinical symptoms of left L2 radiculopathy. There is a pathologic L2 compression fracture with mild, less than 20%, loss of vertebral body height. Multilevel degenerative changes of the lumbar spine with multilevel neural foraminal narrowing, including moderate left neural foraminal stenosis at L5-S1. The findings were sent to the Radiology Results Communication Center at 6:41 pm on 07/18/2017to be communicated to a licensed caregiver. D/ / 07/18/2017 18:48:20 Nisha Friend MD / pablito Interpreting Provider: Nisha Friend MD Thoracic Spine MRI 07/18/17 14:25 IMPRESSION: Multilevel STIR hyperintense, enhancing lesions throughout the thoracic spine are consistent with osseous metastases. There is no gross epidural extension of tumor. No acute pathologic fracture. Multilevel degenerative changes of the thoracic spine without spinal canal stenosis. D/ / 07/18/2017 18:37:24 Nisha Friend MD / pablito Interpreting Provider: Nisha Friend MD - ABG Interpretation ABG results: PT/INR, D-dimer PT 13.8 Seconds (9.4-12.1) H 07/19/17 03:47 Consult Discharge Plan - Plan Additional Instructions: continue lovenox until follow up with medical oncology-at which time patient will then likely transition to DOAC. Referrals: Peng Cardenas DO [Primary Care Provider] - 07/24/17 11:30 am Prescriptions: Enoxaparin [Lovenox *PHARMACY WT BASED*] 110 mg SQ Q12H #60 syringe Enoxaparin [Lovenox *PHARMACY WT BASED*] 110 mg SQ Q12H #12 syringe Sennosides/Docusate Sodium [Senna Plus] 2 each PO BID PRN #60 tablet PRN Reason: Constipation <Haldey Phan - Last Filed: 07/20/17 11:56> Date of Encounter: 07/19/17 - Constitutional Vitals: Vital Signs Temp Pulse Resp BP Pulse Ox 07/20/17 11:32 18 92 07/20/17 07:40 98.3 F 84 16 133/88 94 07/20/17 04:00 89.8 F L 78 18 140/74 92 07/20/17 03:42 20 94 07/20/17 00:25 18 94 07/19/17 20:00 99.1 F 89 16 134/74 94 07/19/17 19:54 19 96 07/19/17 16:24 18 93 07/19/17 15:50 98.5 F 87 18 111/65 92 Intake and Output 07/20/17 07/20/17 07/20/17 00:59 08:59 16:59 Intake Total 180 / 180 0 / 0 360 / 360 Output Total 0 / 0 550 / 550 Balance 180 / 180 -550 / -550 360 / 360 Intake: Oral 180 / 180 0 / 0 360 / 360 Output: Urine 0 / 0 550 / 550 Other: Meal Dinner Breakfast Percent of Meal Consumed 90% 100% Weight 113.2 kg Patient Weight 07/21/17 00:59 Weight 113.2 kg Oncology: Obj Data - Labs CBC & Chem 7: 07/20/17 04:12 07/19/17 03:47 Labs: Laboratory Results - last 24 hr 07/19/17 07/20/17 11:20 04:12 WBC 13.0 H RBC 3.41 L Hgb 9.8 L Hct 30.4 L MCV 89.1 MCH 28.7 MCHC 32.2 RDW 12.9 Plt Count 379 MPV 10.4 Fluid Source right middle lobe Fluid Volume 20 Fluid Appearance Cloudy A Fluid RBC TNP Fld Tot Nucleated Cell TNP Fluid Seg Neutrophil % 63.0 Fld Band Neutrophil % 0.0 Fluid Lymphocytes % 7.0 Fluid Monocytes % 1.0 Fluid Eosinophils % 0.0 Fluid Basophils % 0.0 Fluid Other Cells % 29.0 - ABG Interpretation ABG results: PT/INR, D-dimer PT 13.8 Seconds (9.4-12.1) H 07/19/17 03:47
[2017-07-19] MEDS: Aspirin 81 MG TAB.CHEW PO SCH (14:08)
[2017-07-19] MEDS: *HR* Enoxaparin 120 MG/0.8 ML SYRINGE SQ SCH (16:42)
[2017-07-19 20:58] LABS: Appearance of Body Fluid Cloudy (Clear); Volume of Body Fluid 20 mL
--- NOTE | 2017-07-19 21:39 | Pulmonology Progress Note ---
Date of Encounter: 07/19/17 Time of Encounter: 08:45 Assessment and Plan (1) Mass of hilum Current Visit: Yes Status: Acute Will need EBUS guided biopsy today as there is concern for compression fracture compressing the spinal cord if it is a small cell ca patient will get inpatient radiotherapy . (2) Pulmonary embolism Current Visit: Yes Status: Acute To continue Lovenox in the evening. Qualifiers: Pulmonary embolism type: other Chronicity: acute Acute cor pulmonale presence: without acute cor pulmonale Qualified Code(s): I26.99 - Other pulmonary embolism without acute cor pulmonale (3) DVT (deep venous thrombosis) Current Visit: Yes Status: Acute To continue Lovenox Qualifiers: DVT location: lower extremity Chronicity: acute Laterality: left Qualified Code(s): I82.402 - Acute embolism and thrombosis of unspecified deep veins of left lower extremity (4) Cerebellar stroke Current Visit: Yes Status: Acute To follow Neuro Recs. Subjective Principal diagnosis: CVA, diplopia Interval history: Patient is doing well with no symptoms of chest pain , denies any shortness of breadth. Objective PUL Vital signs: Last Vital Signs Temp 99.1 F 07/19/17 20:00 Pulse 89 07/19/17 20:00 Resp 16 07/19/17 20:00 BP 134/74 07/19/17 20:00 Pulse Ox 94 07/19/17 20:00 Auscultation: bilateral: diminished breath sounds Results - Laboratory Findings CBC and BMP: 07/19/17 03:47 07/19/17 03:47 PT/INR, D-dimer PT 13.8 Seconds (9.4-12.1) H 07/19/17 03:47 Abnormal lab findings: Abnormal lab results RBC 3.58 M/mcL (4.19-5.50) L 07/19/17 03:47 Hgb 10.2 g/dL (12.9-16.9) L 07/19/17 03:47 Hct 31.5 % (37.5-50.1) L 07/19/17 03:47 Monocytes # 1.4 K/mcL (0.0-1.3) H 07/18/17 04:09 PT 13.8 Seconds (9.4-12.1) H 07/19/17 03:47 APTT 90.1 Seconds (26.0-36.0) H 07/17/17 12:57 Heparin Anti-Xa, Unfract 0.97 IU/mL (0.30-0.70) H 07/17/17 03:32 POC Glucose 107 mg/dL (70-99) H 07/15/17 07:36 Lactate Dehydrogenase 348 Units/L (140-271) H 07/18/17 04:09 Troponin I 0.23 ng/mL (< 0.04) H* 07/15/17 21:33 Urine Protein 30 mg/dL (Neg-Trace) H 07/15/17 13:45 Urine Blood Small (Negative) H 07/15/17 13:45 - Microbiology Findings Microbiology Findings: Microbiology, Last 48 Hours 07/19/17 11:20 Gram Stain - Preliminary Right Middle Lobe Lung - Clinical Findings Intake & Output: Intake & Output 07/19/17 07/19/17 07/19/17 07:59 15:59 23:59 Intake Total 440 / 440 180 / 180 Output Total 1225 / 1225 0 / 0 275 / 275 Balance -1225 / -1225 440 / 440 -95 / -95 Weight 114.7 kg - VTE Documentation of Mechanical Device: Intermittent pneumatic compression device Consult Discharge Plan - Plan Referrals: Peng Cardenas DO [Primary Care Provider] - 07/24/17 11:30 am Prescriptions: Enoxaparin [Lovenox *PHARMACY WT BASED*] 110 mg SQ Q12H #60 syringe Enoxaparin [Lovenox *PHARMACY WT BASED*] 110 mg SQ Q12H #12 syringe Sennosides/Docusate Sodium [Senna Plus] 2 each PO BID PRN #60 tablet PRN Reason: Constipation
[2017-07-20 04:48] LABS: Hematocrit 30.4 % (37.5-50.1); Hemoglobin 9.8 g/dL (12.9-16.9); Mean Corpuscular HGB Conc 32.2 g/dL (31.6-35.5); Mean Corpuscular Hemoglobin 28.7 pg (28.0-33.3); Mean Corpuscular Volume 89.1 fL (83.0-100.0); Mean Platelet Volume 10.4 fL (9.4-12.4); Platelet Count 379 K/mcL (140-400); Red Blood Count 3.41 M/mcL (4.19-5.50); Red Cell Distribution Width 12.9 % (11.5-14.5)
[2017-07-20] MEDS: *HR* Enoxaparin 120 MG/0.8 ML SYRINGE SQ SCH (05:46)
[2017-07-20] MEDS: Acetaminophen 325 MG TABLET PO PRN ×2 (05:50→10:05)
--- NOTE | 2017-07-20 08:58 | Internal Med Progress Note ---
<Nakul Montaño - Last Filed: 07/20/17 09:11> Date of Encounter: 07/20/17 Time of Encounter: 08:30 - Assessment and plan (1) Mass of hilum Status: Acute Assessment and plan: Lung CA with bone mets (suspect brain, bone and spine) Dr. Gastelum, performed endoscopy ultrasound-guided bronchoscopic biopsy of right central lung mass, non-small cell lung carcinoma. Patient is aware. Oncology recommends radiation therapy outpatient. Continue with Lovenox until outpatient follow-up with oncology. Discharge today. Refer to Discharge summary. (2) Cerebellar stroke Status: Acute Assessment and plan: Patient developed double vision at 3 AM on 07/14/17. MRI Brain shows acute infarct on cerebellar nodules at vermis. Likely cause of visual disturbances. No ischemic EKG changes Carotid duplex with 40-59% R ICA occlusion, 60-79% L ICA occlusion Echo demonsrates aneurysmal interatrial septum with positive bubble study for right to left shunting. Intracardiac throbus not identified. Cardiology has seen patient and has no further acute cardiac recommendations. BL LE dopplers demonstrates left LE acute DVT in gastronemius. difficult to differentiate hypercoagulable state vs cardioembolic origin. Continue Lovenox SQ, The presence of two small ischemic infarct would not be considered contraindication for anticoagulation. (3) Elevated troponin Status: Acute Assessment and plan: Troponins 0.08, 0.12, 0.17, 0.23 in setting of CVA and CKD. Also in setting of possible metastatic cancer--lung and bone masses. Suspect demand ischemia, nondiagnostic for ACS. Reports occasional left sided sharp chest pain with no alleviating or exacerbating factors. Standard stress test 2016 negative for ischemia. TTE LVEF 60-65%. Mild cLVH. Mild LVDD, normal RV structure and function. Mild NE , mild TR, mild phtn. There is a PFO by agitated saline contrast. No ischemic EKG changes. No inpatient ischemic evaluation is warranted at this time in setting of CVA. (4) Hypertension Status: Chronic Assessment and plan: Blood pressure well controlled and stable. Qualifiers: Hypertension type: essential hypertension Qualified Code(s): I10 - Essential (primary) hypertension (5) Bone metastases Status: Acute Assessment and plan: Patient has history of weight loss for 40 Lb over the last 2 months, loss of balance, PET scan shows spine and right iliac increased uptake. Primary source likely right hilar mass. Continue pain control Plan for outpatient follow up. (6) CKD (chronic kidney disease), stage III Status: Chronic Assessment and plan: CKD stages 3 has been stable, avoid nephrotoxins (7) Hypokalemia Status: Resolved Assessment and plan: resolved and stable. (8) Pulmonary embolism Status: Acute Assessment and plan: CT chest with contrasts confirms acute PE best seen in left lower lobe pumonary arteries, suspected in other pulmonary arteries as well. Continue Lovenox in the setting of lung metastatic cancer. Qualifiers: Pulmonary embolism type: other Chronicity: acute Acute cor pulmonale presence: without acute cor pulmonale Qualified Code(s): I26.99 - Other pulmonary embolism without acute cor pulmonale (9) Constipation Status: Acute Assessment and plan: Patient is on opiods for metastatic bone pain Senna plus prn Qualifiers: Constipation type: drug induced constipation Qualified Code(s): K59.03 - Drug induced constipation (10) Acute respiratory failure with hypoxia Status: Acute - Time Spent With Patient Total time spent is greater than 50% in coordination of care (as documented) at patient's floor/unit and/or counseling patient: Greater than 35 minutes - Subjective Interval history: No overnight acute changes. Patient has complaints of dry cough since bronchoscopy. Denies chest pain, SOB, abdominal pain. 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 Denies difficulty tolerating PO intake. Voiding without difficulty. Denies headaches, dizziness, lightheadedness. +BM - Constitutional Vitals: Temp Pulse Resp BP Pulse Ox 98.3 F 84 16 133/88 94 07/20/17 07:40 07/20/17 07:40 07/20/17 07:40 07/20/17 07:40 07/20/17 07:40 General appearance: Present: cooperative, A&O X 3, pleasant, no acute distress, obese, answers questions appropriately - Head Head exam: Present: atraumatic, normocephalic - Eye Eye exam: Present: normal appearance, conjuntiva pink, sclera anicteric - Neck Neck exam general surgery: Present: supple, trachea midline. Absent: lymphadenopathy - Respiratory Respiratory exam: Present: rhonchi. Absent: accessory muscle use, wheezes Additional comments: Dry cough while speaking, and with deep breathing. - Cardiovascular Cardiovascular exam: Present: RRR, +S1, +S2. Absent: diastolic murmur, gallop, rubs, systolic murmur - GI/Abdominal GI/Abdominal exam: Present: normal bowel sounds, soft, no peritoneal signs. Absent: distended, tenderness - Extremities Exam Extremities exam: Present: warm, radial pulses palpable and symmetrical. Absent : calf tenderness, cyanotic, pedal edema - Neurological Exam Neurological exam: Present: CN II-XII intact, oriented X3, no focal deficits. Absent: pronater drift, facial droop, speech deficit - Skin Skin exam: Present: dry, intact Internal Medicine: Result - Labs CBC & Chem 7: 07/20/17 04:12 07/19/17 03:47 Labs: Short CBC 07/20/17 Range/Units 04:12 WBC 13.0 H (4.3-11.1) K/mcL Hgb 9.8 L (12.9-16.9) g/dL Hct 30.4 L (37.5-50.1) % Plt Count 379 (140-400) K/mcL - ABG Interpretation ABG results: PT/INR, D-dimer PT 13.8 Seconds (9.4-12.1) H 07/19/17 03:47 - VTE Documentation of Mechanical Device: Intermittent pneumatic compression device Consult Discharge Plan - Plan Instructions: Laxative, Stimulant (By mouth), Enoxaparin (Injection), Pulmonary Embolism (DC), Peripheral Vascular Disorders (DC), Ischemic Stroke (DC ), Ischemic Stroke (GEN), Hemorrhagic Stroke (DC), Hemorrhagic Stroke (GEN), Self Care Measures After a Stroke (DC), Self Care Measures After a Stroke (GEN) , Pneumonia (DC), Pneumonia (GEN) Additional Instructions: continue lovenox until follow up with medical oncology-at which time patient will then likely transition to DOAC. Referrals: Peng Cardenas DO [Primary Care Provider] - 07/24/17 11:30 am Prescriptions: Enoxaparin [Lovenox *PHARMACY WT BASED*] 110 mg SQ Q12H #60 syringe Enoxaparin [Lovenox *PHARMACY WT BASED*] 110 mg SQ Q12H #12 syringe Sennosides/Docusate Sodium [Senna Plus] 2 each PO BID PRN #60 tablet PRN Reason: Constipation <Florentin Luna - Last Filed: 07/20/17 17:35> Date of Encounter: 07/20/17 - Assessment and plan (1) Elevated troponin Status: Acute (2) Hypertension Status: Chronic Qualifiers: Hypertension type: essential hypertension Qualified Code(s): I10 - Essential (primary) hypertension (3) Bone metastases Status: Acute (4) CKD (chronic kidney disease), stage III Status: Chronic (5) Hypokalemia Status: Resolved (6) Pulmonary embolism Status: Acute Qualifiers: Pulmonary embolism type: other Chronicity: acute Acute cor pulmonale presence: without acute cor pulmonale Qualified Code(s): I26.99 - Other pulmonary embolism without acute cor pulmonale (7) Mass of hilum Status: Acute (8) Cerebellar stroke Status: Acute (9) Constipation Status: Acute Qualifiers: Constipation type: drug induced constipation Qualified Code(s): K59.03 - Drug induced constipation (10) Acute respiratory failure with hypoxia Status: Acute - Time Spent With Patient Total time spent is greater than 50% in coordination of care (as documented) at patient's floor/unit and/or counseling patient: - Constitutional Vitals: Temp Pulse Resp BP Pulse Ox 98 F 72 18 128/68 95 07/20/17 11:59 07/20/17 11:59 07/20/17 11:59 07/20/17 11:59 07/20/17 11:59 Internal Medicine: Result - Labs CBC & Chem 7: 07/20/17 04:12 07/19/17 03:47 Labs: Short CBC 07/20/17 Range/Units 04:12 WBC 13.0 H (4.3-11.1) K/mcL Hgb 9.8 L (12.9-16.9) g/dL Hct 30.4 L (37.5-50.1) % Plt Count 379 (140-400) K/mcL - ABG Interpretation ABG results: PT/INR, D-dimer PT 13.8 Seconds (9.4-12.1) H 07/19/17 03:47 - Impressions Impressions Cervical Spine MRI 07/18/17 14:25 IMPRESSION: Motion degraded study. Enhancing lesions involving the C3 and C5 vertebral bodies are consistent with osseous metastasis. No gross ventral epidural extension of tumor. No acute pathologic fracture. Multilevel degenerative changes of the cervical spine. There is severe spinal canal stenosis at C4-C5 and moderate spinal canal stenosis at C5-C6. There is mild spinal canal stenosis at C3-C4 and C6-C7. Multilevel neural foraminal narrowing, including severe bilateral neural foraminal stenosis at C3-C4, C4-C5, and C6-C7. D/ / 07/18/2017 18:21:39 Nisha Friend MD / danitza Interpreting Provider: Nisha Friend MD Lumbar Spine MRI 07/18/17 14:25 IMPRESSION: Enhancing, STIR hyperintense lesions involving L2, L3, L5, and left aspect of the sacrum, are consistent with osseous metastases. Ventral epidural extension of tumor at the L2 level contributes to mild spinal canal stenosis, effacement of the left lateral recess, and compression of the left L2 nerve root. Correlate with clinical symptoms of left L2 radiculopathy. There is a pathologic L2 compression fracture with mild, less than 20%, loss of vertebral body height. Multilevel degenerative changes of the lumbar spine with multilevel neural foraminal narrowing, including moderate left neural foraminal stenosis at L5-S1. The findings were sent to the Radiology Results Communication Center at 6:41 pm on 07/18/2017to be communicated to a licensed caregiver. D/ / 07/18/2017 18:48:20 Nisha Friend MD / pablito Interpreting Provider: Nisha Friend MD Thoracic Spine MRI 07/18/17 14:25 IMPRESSION: Multilevel STIR hyperintense, enhancing lesions throughout the thoracic spine are consistent with osseous metastases. There is no gross epidural extension of tumor. No acute pathologic fracture. Multilevel degenerative changes of the thoracic spine without spinal canal stenosis. D/ / 07/18/2017 18:37:24 Nisha Friend MD / pablito Interpreting Provider: Nisha Friend MD - Attending Attestation I examined this patient and my medical decision-making was reviewed with the Resident Physician on 07/20 with family at the bedside. I agree with the documented findings, disposition and treatment plan as described except to the extent set forth below. Plan is as documented, s/p biopsy 07/19, no hemoptysis, clinically stable to be discharged home on lovenox and oxygen. Follow-up with pulmonology, and oncology. Rest of details as in the resident physicians documentation.
[2017-07-20] MEDS: Aspirin 81 MG TAB.CHEW PO SCH (10:04)
[2017-07-20] MEDS: Sennosides/Docusate Sodium TABLET PO SCH (10:05)
[2017-07-20] MEDS: Losartan/HCTZ 50-12.5 TABLET PO SCH (10:05)
[2017-07-20 12:01] VITALS: BP 128/68
== END 2017-07-20 14:03 | disposition home health service (06) | DRG 64 ==
LOC: 2NENU 07:29 → EMEROO 07:29 → 2NENU 10:45 → SUATTDRO 07-16 18:52
PROVIDERS: ADMIT Hospitalist; ATTEND Internal Medicine